=== PATIENT | female | born 1935 | race Caucasian/White ===

== ENCOUNTER 2022-01-04 15:50 | Inpatient (IN) | payer MEDICARE ==
[~2022-01-04] VITALS: Ht 149.9 cm; Wt 57.6 kg
--- NOTE | 2022-01-04 20:18 | NUR ---
PT ARRIVED FROM E.D. AT THIS TIME, SHE IS ALERT AND ORIENTED, DAUGHTER IS WITH PATIENT IN ROOM FOR ADMISSION.
--- NOTE | 2022-01-04 20:20 | NUR ---
PT ARRIVES TO THE FLOOR VIA STRETCHER. PT ABLE TO STAND AND WALK TO BATHROOM WITH 1PA AND BACK TO BED. TOLERATED WELL. ADMISSION PROCESS COMPLETE WITH PT'S DAUGHTER AT BEDSIDE.MD ORDERS AND POC FOR THIS SHIFT DISCUSSED. FURTHER QUESTIONS DENIED. BED ALARM ACTIVATED. CALL LIGHT INSTRUCTIONS PROVIDED AND CALL LIGHT LEFT IN PT REACH. PT DENIES FURTHER NEEDS AT THIS TIME.
--- NOTE | 2022-01-04 22:04 | NUR ---
PT UP TO BEDSIDE COMMODE AT THIS TIME. SHE REPORTS NO PAIN OR NAUSEA AT THIS TIME. HS MED PASS COMPLETE. PENDING ASSESSMENT FOR AFTER SHE IS OFF THE COMMODE, SHE IS DRINKING THE LAST OF HER BOWEL PREP AT THIS TIME.
--- NOTE | 2022-01-04 22:49 | NUR ---
PT UP TO BEDSIDE COMMODE, NOTED TO HAVE PROLAPSE AT THIS TIME, PT CONTINUES TO HAVE LOOSE STOOLS, AND INSISTS ON SITTING LONGER ON COMMODE, PT ALOTTED 15MIN MORE THEN TO BED TO ATTEMPT TO REDUCE PROLAPSE IF ABLE.
--- NOTE | 2022-01-04 23:08 | NUR ---
INTO ASSIST PT BACK TO BED, SHE SAID SHE HAS NAUSEA, AND SHE FELT LIGHT HEADED, THIS RN AND DONN PARHAM RN ASSISTED PT BACK TO BED, WHILE SALVAGE INSPECTOR JAZMIN WENT FOR ZOFRAN. ONCE PT BACK TO BED, ASSESSED PROLAPSE, PROLAPSE REDUCED ONCE PT IN BED BY ITS SELF, PT REPORTS NO PAIN, PT ALSO REPORTS NAUSEA IMPROVED ONCE IN BED, ZOFRAN ADMINISTERED, PT ON BED JARAMILLO SHE CONTINUES TO HAVE LOOSE BM AT THIS TIME.
--- NOTE | 2022-01-04 23:20 | NUR ---
IN TO ASSIST RN WITH PT ON BEDPAN
--- NOTE | 2022-01-04 23:25 | NUR ---
PT REPORTS NO NAUSEA OR PAIN CONTINUE TO HAVE LOOSE STOOLS ON THE BEDPAN. PT REPORTS NO LIGHT HEADEDNESS, PROLAPSE REMAINS REDUCED AT THIS TIME.
--- NOTE | 2022-01-05 00:13 | NUR ---
PT ASSESSED AND CHANGED OFF OF BEDPAN FOR SKIN CHECK AND CLEAN UP. PT REPORTS "I AM SO MUCH MORE COMFORTABLE ON THE BED JARAMILLO" JARAMILLO PLACED BACK UNDER PT AND SHE CONTINUES TO HAVE LIQUID STOOL CONTINUALLY. TOWEL FOLED AND CHECKS PLACED OVER BED JARAMILLO TO PROTECT SKIN AND PROVIDE PADDING. PT COOPERATIVE WITH ALL CARE.
--- NOTE | 2022-01-05 00:28 | NUR ---
RECTAL PROLAPSE REMAINS REDUCED, CALL LIGHT IN REACH, REPORTS NO PAIN, OR NAUSEA.
--- NOTE | 2022-01-05 01:50 | NUR ---
ROUNDING ON PT, CHANGED OUT BED JARAMILLO AND CLEANED PT UP, SHE HAS BEEN ABLE TO SLEEP IN BETWEEN CHANGING. SHE IS ORIENTED AND ALERT TO STAFF IN ROOM. ASSESSMENT PT PROLAPSE REMAINS REDUCED, STOOL IS LIQUID LIGHT ARIAS IN COLOR. TOWEL AND CHUCKS PLACED BETWEEM PT AND BED JARAMILLO TO PROVID SKIN PROTECTION, MONITORING SKIN CLOSELY. PT REPORTS NO PAIN OR NAUSEA AT THIS TIME.
--- NOTE | 2022-01-05 03:30 | NUR ---
IN TO ASSIST RN WITH PTs BEDPAN NEEDS
--- NOTE | 2022-01-05 05:16 | NUR ---
PT COMPLETED BOWEL PREP EARLY IN SHIFT, SHE HAS HAD CONTINUOUS LIQUID BM OVER SHIFT. SHE HAS BEEN USING BED JARAMILLO SINCE SHE HAD PROLAPSE WHEN UP TO COMMODE, IT REDUCED WHEN BACK TO BED BY ITS SELF, SHE HAS BEEN CHANGED AND CLEANED EVERY HOUR. SHE REPORTS NO PAIN OR NAUSEA OVER SHIFT. SHE REMAINS ON CLEAR LIQUID DIET. SCDS ON. CALL LIGHT IN REACH, IVF INFUSING.
--- NOTE | 2022-01-05 07:29 | NUR ---
CALLED FOR UP DATE ON PT GAVE UPDATE ON EVENTS AT 714, CALLED BACK AT THIS TIME TO NOTIFY HIM OF PT LABS, INCLUDING H/H, AND K+ 3.3 GAVE TELEPHONE ORDER FOR 20MEQ IV ONCE TO BE INFUSED OVER TWO HOURS. ORDER PLACED. SAID HE WILL PLAN TO TAKE PT TO COLONOSCOPY TO FOLLOW THIS AM.
[2022-01-05] MEDS ORDERED: DORZOLAMIDE HCL10 ML OU (08:52)
[2022-01-05] MEDS ORDERED: IPRATROPIUM BRO15 ML NAS (08:53)
[2022-01-05] MEDS ORDERED: LATANOPROST2.5 ML OU (08:54)
[2022-01-05] MEDS ORDERED: METOPROLOL TART25 MG PO (08:55)
[2022-01-05] MEDS ORDERED: BRIMONIDINE TART5 ML OU (08:56)
[2022-01-05] MEDS ORDERED: TIMOLOL MALEATE5 M2 OU (08:57)
[2022-01-05] MEDS ORDERED: CITRACAL + D E1 EACH PO (10:45)
[2022-01-05] MEDS ORDERED: ARTIFICIAL TEAR15 ML OPTH (10:45)
[2022-01-05] MEDS ORDERED: CENTRUM SILVER1 EAC3 PO (10:46)
[2022-01-05] MEDS ORDERED: VITAMIN C500 M1 PO (10:47)
--- NOTE | 2022-01-05 10:50 | NUR ---
MED REC COMPLETE
--- NOTE | 2022-01-05 11:35 | NUR ---
01/05/22 1135 Rosi Rao 1131: PT ARRIVES TO PACU FOR RECOVERY VIA STRETCHER. VSS, RESP EVEN AND UNLABORED. O2 SATS >98% ON 10L VIA NON REABREATHER. NON AROUSABLE ON ARRIVAL. PASSING GAS INTERMITTENTLY.
--- NOTE | 2022-01-05 12:34 | NUR ---
Patient back to the medical floor from colonoscopy study. Patient awake, a&ox4. Patient denies pain and or nausea. IV fluids restarted per provider order. Vital signs are stable. No rectal bleeding noted at this time. Patient denies needs. Encouraged patient to call staff if she needs anything.
--- NOTE | 2022-01-05 14:51 | NUR ---
BLOOD STARTED. VITALS TAKEN AND DOCUMMENTED. PT EDUCATED ON S/SX OF TRANSFUSION REACTION. BLOOD STARTED AT 30ML/HR FOR 15 MINUTES. THIS NURSE AT BEDSIDE MONITORING PT.
--- NOTE | 2022-01-05 14:55 | NUR ---
PT WITHOUT SIGNS OR SYMPTOMS OF REACTION. RATE INCREASED TO 150ML/HR. VITALS TAKEN AND STABLE.
--- NOTE | 2022-01-05 16:38 | NUR ---
Patient doing well, no distress. Blood continuing to infuse, IV patent. Patient denies pain at this time. Daughter at bedside visiting. No current needs. Personal supplies and call light within reach.
--- NOTE | 2022-01-05 17:49 | NUR ---
Dr. Quiroz updated regarding most recent H&H of [phone]. No new orders obtained at this time.
--- NOTE | 2022-01-05 18:53 | NUR ---
No rectal bleeding this shift. Patient denies pain at this time. No current needs.
--- NOTE | 2022-01-05 19:49 | NUR ---
REPORT RECEIVED FROM DAY SHIFT RN. PT LYING IN BED ALERT AND ORIENTED. DENIES NEEDS. WHITE BOARD UPDATED. CALL LIGHT IN REACH.
--- NOTE | 2022-01-05 21:35 | NUR ---
EVENING ASSESSMENT COMPLETE. SCHEDULED MEDS ADMINISTERED PER EMAR. PT DENIES PAIN OR NAUSEA. SCHEDULED TYLENOL HELD PER PT REQUEST. IVF INFUSING WNL. BOWEL TONES ACTIVE. ABD SOFT AND NON DISTENDED. SCD'S IN PLACE. PT DENIES QUESTIONS OR CONCERNS. CALL LIGHT IN REACH.
--- NOTE | 2022-01-05 22:32 | NUR ---
PT UP TO BR WITH SBA TO VOID AND HAVE SMALL AMOUNT LIQUID BM. THIS RN ASSISTED WITH [facility]. RECTAL PROLAPSE NOTED. ATTEMPT TO REDUCE WITH GENTLE PRESSURE UNSUCCESSFUL. PT REPORTS IF SHE LIES BACK DOWN IN BED IT WILL REDUCE ITSELF. PT BACK TO BED. RECTUM DID SELF REDUCE. DR. LASSITER ON FLOOR AND AWARE. PT DENIES FURTHER NEEDS. CALL LIGHT IN REACH.
--- NOTE | 2022-01-06 00:35 | NUR ---
PT RESTING IN BED WITH EYES CLOSED. RESPIRATIONS EVEN. CALL LIGHT IN REACH.
--- NOTE | 2022-01-06 02:51 | NUR ---
CALL LIGHT ANSWERED. PT UP TO BSC WITH MINIMAL SBA TO VOID. STAFF ASSIST WITH [facility]. RECTAL PROLAPSE NOTED. RECTUM SELF REDUCED AFTER PT IN LYING POSITION. SCANT AMOUNT OF BLEEDING NOTED WITH [facility]. PT DENIES PAIN OR NAUSEA. NEW BAG IVF INFUSING WNL. NO FURTHER NEEDS. CALL LIGHT IN REACH.
--- NOTE | 2022-01-06 04:50 | NUR ---
IV PUMP ALARMING. ISSUE RESOLVED. PT RESTING WITH EYES CLOSED. RESPIRATIONS EVEN. CALL LIGHT IN REACH.
--- NOTE | 2022-01-06 06:40 | NUR ---
VS AND I&O COMPLETE. PT DENIES PAIN OR NAUSEA. SCHEDULED TYLENOL HELD PER REQUEST. PT DENIES NEEDS. CALL LIGHT IN REACH.
--- NOTE | 2022-01-06 07:24 | NUR ---
Patient resting in bed, eyes closed, respirations even and non labored. IV infusing per provider order. No needs at this time. Personal supplies and call light within reach.
--- NOTE | 2022-01-06 09:19 | NUR ---
Patient up to bedside commode, small soft stool noted, no blood. Rectal prolapse noted, this RN attempted to gently reduce, unsuccessful at this time. Patient assisted back to bed, rectum self reduced at this time. Patient denies pain. No current needs. Personal supplies and call light within reach.
--- NOTE | 2022-01-06 10:17 | NUR ---
PATIENT TO CT WITH ERYN CASEY, VIA WHEELCHAIR.
--- NOTE | 2022-01-06 13:17 | NUR ---
Dr. Quiroz in to see patient to discuss plan of care. Patient reports she is understanding of plan of care at this time.
--- NOTE | 2022-01-06 14:18 | NUR ---
Verbal report provded to RAUL Rubin at this time as she will take over care of this patient for the remainder of this shift.
--- NOTE | 2022-01-06 16:38 | NUR ---
Rounded on the patient, patient watching TV, assess if she need anything and she asked to wait to use the bathroom for about another 30 minutes
--- NOTE | 2022-01-06 19:45 | NUR ---
REPORT RECEIVED FROM DAY SHIFT RN. PT LYING IN BED RESTING WITH EYES CLOSED. RESPIRATIONS EVEN. CALL LIGHT IN REACH.
--- NOTE | 2022-01-06 20:43 | NUR ---
V/S AND I&O'S DONE AND CHARTED BY RAUL SUAZO. PATIENT WAS WIPED FROM INCONTINENT URINE AND BOWEL MOVEMENT. PATIENT REPOSITIONED. GOWN CHANGED. NO OTHER CARE NEEDS AT THIS TIME.
--- NOTE | 2022-01-06 22:15 | NUR ---
EVENING ASSESSMENT COMPLETE. SCHEDULED MEDS ADMINISTERED PER EMAR. PT DENIES PAIN OR NAUSEA. SCHEDULED TYLENOL HELD PER PT REQUEST. BOWEL TONES ACTIVE. ABD SOFT AND NON DISTENDED. PT UPDATED ON PLAN FOR SURGERY FRIDAY. CLEAR LIQUIDS AT BEDSIDE. SCD'S IN PLACE. PT DENIES QUESTIONS OR CONCERNS. CALL LIGHT IN REACH.
--- NOTE | 2022-01-06 23:52 | NUR ---
PATIENT IS OFF OF THE BED JARAMILLO NOW. HAD LOOSE BOWEL MOVEMENT AND URINE. RN MARIA DEL ROSARIO WAS WITH PATIENT. GARBAGE PICKED UP.
--- NOTE | 2022-01-07 01:13 | NUR ---
IV IN LEFT FOREARM LEAKING AND REDNESS NOTED. IV DC'D WNL. TIP INTACT. NEW IV STARTED WITH 4 ATTEMPTS. JERRI FAIR. PT ANXIOUS WITH IV STARTS. SUPPORT PROVIDED. IVF INFUSING WNL. PT DENIES FURTHER NEEDS.
--- NOTE | 2022-01-07 02:48 | NUR ---
PT RESTING IN BED WITH EYES CLOSED. RESPIRATIONS EVEN. CALL LIGHT IN REACH.
--- NOTE | 2022-01-07 04:32 | NUR ---
CALL LIGHT ANSWERED. ASSISTED PT TO USE BED JARAMILLO TO VOID AND HAVE LIQUID BROWN BM. STAFF ASSIST WITH [facility]. RECTAL PROLAPSE NOT NOTED AT THIS TIME. REPOSITIONED TO RIGHT SIDE FOR COMFORT. NEW BAG IVF INFUSING WNL. NO FURTHER NEEDS. CALL LIGHT IN REACH.
--- NOTE | 2022-01-07 06:10 | NUR ---
VS AND I&O COMPLETE. PT DENIES PAIN OR NAUSEA. NO FURTHER NEEDS. CALL LIGHT IN REACH.
--- NOTE | 2022-01-07 07:52 | NUR ---
Patient in bed resting, eyes closed, respirations even and non labored. Patient has no notable distress. IV site patent, IV fluids infusing per provider order. No needs, personal supplies and call light within reach.
--- NOTE | 2022-01-07 10:47 | NUR ---
I was able to meet with Annika and her children this morning, Annika is alert and oriented to person, place and time, and answers questions appropriately. Pt does request that she can use bedside commode as compared to bedpan which some staff members have been having her use. There are no contraindications noted for using the bedside commode at this time, request passed on to patient's RN who verbalizes agreement with the plan, and will pass this informaiton on to other staff members. Pt reports that she is happy with her care and has no other concerns at this time. Daughter does note that the patient has a "little bit of redness on her right elbow," this is also noted byt his RN and passed on to the patients primary care nurse.
--- NOTE | 2022-01-07 10:49 | NUR ---
PATIENT SITTING UP IN BED, FAMILY IN ROOM. VITALS AND I&O'S CHARTED. CALL LIGHT IN REACH. NO FURTHER NEEDS AT THIS TIME.
--- NOTE | 2022-01-07 11:45 | NUR ---
Patient up to bedside commode, scant liquid stool noted, no blood. Rectal prolapse noted, this RN attempted to gently reduce, unsuccessful at this time. Patient assisted back to bed, rectum self reduced at this time. Patient denies pain. No current needs. Personal supplies and call light within reach.
--- NOTE | 2022-01-07 12:57 | NUR ---
Patient sitting up in bed drinking fluids, no distress. IV site patent, fluids infusing per provider order. Patient denies pain. No needs at this time, personal supplies and call light within patient reach.
--- NOTE | 2022-01-07 13:45 | NUR ---
New IV started. IV kcl started at this time. Patient denies needs.
--- NOTE | 2022-01-07 14:50 | NUR ---
PATIENT IN BED AT THIS TIME. VITALS AND I&O'S CHARTED. CALL LIGHT IN REACH. NO FURTHER NEEDS AT THIS TIME.
--- NOTE | 2022-01-07 15:02 | NUR ---
MED REC COMPLETE
--- NOTE | 2022-01-07 15:35 | NUR ---
IV site infiltrated at this time. New IV to be placed. KCL iv infusion currently delayed due to this. New IV being attempted at this time.
--- NOTE | 2022-01-07 19:12 | NUR ---
REPORT RECIEVED FROM DAY SHIFT RN. PT LYING IN BED ALERT AND ORIENTED. DENIES NEEDS. WHITE BOARD UPDATED. CALL LIGHT IN REACH.
--- NOTE | 2022-01-07 21:08 | NUR ---
EVENING ASSESSMENT COMPLETE. SCHEDULED MEDS ADMINISTERED PER EMAR. PT REPORTS PAIN/CRAMP IN LEFT FOOT. SCHEDULED TYLENOL ADMIN. IV POTASSIUM INFUSING WNL. PT UP TO BSC TO VOID AND HAVE JELLY LIKE RED BM. HEME TEST NEGATIVE. PT HAS BEEN DRINKING RED COLORED CLEAR LIQUID ENSURE. STAFF ASSIST WITH [facility]. RECTAL PROLAPSE SELF RESOLVED AFTER LYING IN BED. PT ANXIOUS ABOUT UPCOMING SURGERY. QUESTIONS ANSWERED. COMFORT PROVIDED. SCD'S IN PLACE. NO FURTHER NEEDS AT THIS TIME. CALL LIGHT IN REACH.
--- NOTE | 2022-01-07 23:00 | NUR ---
1 PA PATIENT WAS UP TO BEDSIDE COMMODE. VOIDED 300ML WITH SOME RED CLOTS. PATIENT IS BACK IN BED. NO OTHER NEEDS AT THIS TIME. CALL LIGHT AND SIDE TABLE WITHIN REACH.
--- NOTE | 2022-01-07 23:17 | NUR ---
SCHEDULED ABX ADMIN PER EMAR. ASSISTED PT TO REPOSITION IN BED. NO FURTHER NEEDS. CALL LIGHT IN REACH.
--- NOTE | 2022-01-08 00:50 | NUR ---
PT RESTING IN BED WITH EYES CLOSED. RESPIRATIONS EVEN. CALL LIGHT IN REACH.
--- NOTE | 2022-01-08 02:25 | NUR ---
IV POTASSIUM COMPLETE. BMP SENT TO LAB PER DR. LASSITER ORDER. PT UP TO BSC TO VOID AND PASS GAS. STAFF ASSIST WITH [facility]. SOME RED NOTED NEAR RECTUM. UNCLEAR IF BLOOD OR RED DYE FROM CL LIQ ENSURE. BACK TO BED, JERRI WELL. PRE-OP EKG COMPLETE. IVF AT TKO AT THIS TIME. PT REMAINS NPO STATUS.
--- NOTE | 2022-01-08 05:05 | NUR ---
PT UP TO BSC TO VOID AND HAVE SMALL LIQUID BM THAT WAS RED IN COLOR. RECTAL PROLAPSE NOTED. CHLORHEXIDINE WIPE DOWN FOR SURGERY COMPLETE. LINENS CHANGED. PT BACK TO BED. RECTAL PROLAPSE SELF REDUCED. DENTURES REMOVED AND ON BEDSIDE TABLE. NO FURTHER NEEDS AT THIS TIME. CALL LIGHT IN REACH.
--- NOTE | 2022-01-08 06:44 | NUR ---
SBA TO BSC TO VOID AND HAVE SMALL LIQUID BM. SMALL AMOUNT OF BLOOD FROM RECTUM NOTED WITH [facility] AND IN BRIEF. RECTAL PROLAPSE SELF REDUCED AFTER LYING IN BED. NO FURTHER NEEDS. CALL LIGHT IN REACH.
--- NOTE | 2022-01-08 06:58 | NUR ---
PT OFF FLOOR WITH OR NURSE.
--- NOTE | 2022-01-08 07:42 | NUR ---
REPORT RECEIVED FROM NIGHT RN - PT IN OR.
--- NOTE | 2022-01-08 08:10 | NUR ---
Attempted to see pt, she has gone to surgery. Will see tomorrow.
--- NOTE | 2022-01-08 10:06 | NUR ---
MET WITH PT IN DS, SHE AWAITED SURGERY. 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 SEEMS VERY SELF-SUFFICIENT. GAVE ENCOURAGEMENT, PT ASKED FOR PRAYER. WILL FOLLOW NEEDED
--- NOTE | 2022-01-08 11:54 | NUR ---
01/08/22 1154 Keli Lombardi 1143-PATIENT ARRIVED TO PACU ON 8L MASK NONAROUSABLE ORAL AIRWAY IN PLACE. RR EVEN. SR WITH ST DEPRESSION AND BBB. IVF INFUSING. MIDLINE INCISION CDI ROMAN DRAIN TO LEFT SIDE SEROUSANGUINOUS DRAINAGE. 1152-PATIENT AROUSING TO VERBAL STIMULI MOANING. ORAL AIRWAY REMOVED. PLACED ON 6L MASK RR EVEN 100% PATIENT NODS HEAD NO TO PAIN. REMAINS VERY DROWSY EYES CLOSED.
--- NOTE | 2022-01-08 12:46 | NUR ---
REPORT RECEIVED FROM MANAGER CAR. PT AWAKE AND RESPONSIVE IN BED. DENIES PAIN AT THIS TIME. VS CONSISTANT FROM PACU- BP SOFT BUT IMPROVING. INCISION DRESSINGS C/D/I. RR EVEN AND SPO2 WNL. CALL LIGHT IN REACH, PT DEMONSTRATES ABILITY TO PRESS IT.
--- NOTE | 2022-01-08 13:53 | NUR ---
PT HAS RETURNED FROM PACU, RAUL QUINTANILLA REQUESTED I NOT DISTURB PT AT THIS TIME. WILL FOLLOW
--- NOTE | 2022-01-08 14:20 | NUR ---
RN IN ROOM TO ASSESS PT. PT C/O MILD NAUSEA, REQUESTS PRN FOR THIS. 4MG ZOFRAN GIVEN IV. POST OP VS IMPROVING. BP CONTINUING TO RISE. SCHEDULED PAIN MEDS ADMINISTERED. RR SOME-WHAT SHALLOW - ENCOURAGED TO DEEP BREATH. ROMAN DRAIN DRESSING SATURATED WITH SEROUS FLUID, REPLACED AND MIDLINE INCISION DRESSING REINFORCED WITH OPSITE. PT RESTING IN BED WITHOUT DISTRESSS, EASILY FALLS ASLEEP WHILE RN IN ROOM.
--- NOTE | 2022-01-08 14:44 | NUR ---
PT REPORTS INCREASE IN PAIN, PRN MORPHINE ADMINISTERED AT HALF DOSE. DAUGHTER AT BEDSIDE. PT STATES NAUSEA RESOLVED. INSTRUCTED ON IS USE.
--- NOTE | 2022-01-08 16:04 | NUR ---
PT REQUESTS ADITIONAL DOSE OF PRN PAIN MEDICATION. RESTING IN BED WITH EYES OPEN, RR EVEN AND UNLABORED. VS STABLE. ENCOURAGED ICE APPLICATION TO ABDOMEN. CALL LIGHT AND TABLE IN REACH.
--- NOTE | 2022-01-08 18:08 | NUR ---
RN IN ROOM TO ASSESS PT. VS IMPROVING. PT RATES PAIN 5/10, INCREASED WITH DRESSING CHANGE OF ROMAN DRAIN. PRN MEDS ADMINISTERED. PT DENIES NAUSEA. ROMAN DRAIN DRESSING SATURATED WITH SEROSANGUINOUS DRAINAGE THAT SATURATED GOWN. REAPPLIED 4 LAYERS OF 4/4 DRESSING AND SILK TAPE. PT USES IS APPROPRIATLEY. CALL LIGHT IN REACH, TABLE PLACED OVER PT WITH EVERYTHING IN REACH.
--- NOTE | 2022-01-08 20:12 | NUR ---
IV ABX INFUSING WNL. PRN FOR 5/10 ABD PAIN ADMIN PER EMAR. PT DENIES NAUSEA. CLEAR LIQUIDS AT THE BEDSIDE. ASSISTED TO REPOSITION. NO FURTHER NEEDS.
--- NOTE | 2022-01-08 22:15 | NUR ---
EVENING ASSESSMENT COMPLETE. SCHEDULED MEDS ADMINISTERED PER EMAR. PT REPORTS ABD PAIN 03/22. PRN FOR PAIN ADMIN WELL SCHEDULED TYLENOL. PT DENIES NAUSEA. MIDLINE ABD DRESSING CDI. BOWEL TONES HYPOACTIVE. PT DENIES FLATUS. ROMAN IN LLQ STRIPPED WITH SCANT AMOUNT SEROSANG DRAINAGE. CPOX AND SCD'S IN PLACE. VSS. LOW URINE OUTPUT NOTED. ASSISTED PT TO REPOSITION. NO FURTHER NEEDS AT THIS TIME. CALL LIGHT IN REACH.
--- NOTE | 2022-01-08 22:45 | NUR ---
DR. LASSITER NOTIFIED OF LOW URINE OUTPUT. NEW TELEPHONE ORDERS RECEIVED VERIFIED WITH READ BACK METHOD.
--- NOTE | 2022-01-08 23:05 | NUR ---
pt RESTING IN BED AWAKE. IVF BOLUS INFUSING WNL. pt STATES PAIN IS "BETTER". ASSISTED TO UNTANGLE CONTINUOUS PULSE OX CORD. NO ADDITIONAL REQUESTS. CALL LIGHT IN REACH.
--- NOTE | 2022-01-09 00:10 | NUR ---
CALL LIGHT ANSWERED. CPOX ALARMING DUE TO NOT GETTING A GOOD READ. EDUCATION PROVIDED TO PT. IV BOLUS COMPLETE. PT REPORTS SHE IS RESTING COMFORTABLY. NO NEEDS AT THIS TIME.
--- NOTE | 2022-01-09 02:19 | NUR ---
VS AND I&O COMPLETE. IV ABX INFUSING WNL. PT REPORTS ABD PAIN. PRN FOR PAIN ADMIN. DENIES NAUSEA. URINE OUTPUT LESS THAN PARAMATERS. WILL INFUSE 500 ML BOLUS PER MD ORDER.
--- NOTE | 2022-01-09 03:57 | NUR ---
PT RESTING IN BED WITH EYES CLOSED. RESPIRATIONS EVEN. CALL LIGHT IN REACH.
--- NOTE | 2022-01-09 07:07 | NUR ---
VS AND I&O COMPLETE. 350 ML YELLOW URINE IN ADAMS CATH. 8 ML SEROSANG DRAINAGE FROM ROMAN. ROMAN STRIPPED. DRESSING CHANGED AROUND ROMAN DUE TO INSERTION SITE LEAKING. PRN FOR ABD PAIN ADMIN PER EMAR. MIDLINE ABD DRESSING CDI. BOWEL TONES HYPOACTIVE. PT DENIES FLATUS. DENIES NAUSEA. CLEAR LIQUID ENSURE PROVIDED. PT DENIES FURTHER NEEDS. CALL LIGHT IN REACH.
--- NOTE | 2022-01-09 07:46 | NUR ---
REPORT RECEIVED FROM NIGHT RN - PT RESTING IN BED WITH EYES CLOSED. CALL LIGHT IN REACH. CARE PLAN REVIEWED.
--- NOTE | 2022-01-09 09:15 | NUR ---
RN IN ROOM TO ASSESS PT - PT RESTING IN BED AWAKE. PT REQUESTS PRN PAIN MEDICATION. RATES PAIN A 7/10 IN ABDOMEN. SCHEDULED MEDS AND PRN IV PAIN MEDICATION ADMINISTERED. PT REQUESTS ADVANCING DIET TODAY, DENIES PASSING GAS SINCE SURGERY BUT DENIES NAUSEA, BOWEL TONES ACTIVE X 4. PLAN OF CARE REVIEWED WITH PT, STATES UNDERSTANDING AND AGREES TO ATTEMPT TO MOVE TO PO PAIN MANAGMENT AND AMBULATE IN ROOM. IV SITE TOLERATING FLUIDS AND ABX WITHOUT DIFFICULTY OR PAIN. URINE OUTPUT INCREASED FROM PREVIOUS SHIFT, CONCERN ABOUT EDEMA TO BE ADDRESSED WITH MD. BP ELEVATED FROM YESTERDAY BUT WNL. CALL LIGHT IN REACH AND TABLE AT BEDSIDE.
--- NOTE | 2022-01-09 11:55 | NUR ---
PT USES CALL LIGHT TO REQUEST PAIN MEDICATION. IV PRN MEDS ADMINSTERED. PT AGREES TO PLAN TO START PO PAIN MEDS AFTER LUNCH.
--- NOTE | 2022-01-09 11:59 | NUR ---
PT REQUESTS IV PAIN MEDS FOR 7/10 ABDOMINAL PAIN. ADMINISTERED. PT AGREES TO PLAN TO EAT FULL LIQUID DIET AND START PO PAIN MEDS AFTER LUNCH. ROMAN DRESSING CHANGED IT WAS SATURATED. AWARE OF ROMAN OUTPUT AND DRAINAGE - NO NEW ORDERS REVIEVED. IV SALINE LOCKED PER ORDERS. FRESH GOWN AND BED LINENS APPLIED. PT CALL LIGHT AND BEDSIDE TABLE IN REACH.
--- NOTE | 2022-01-09 13:50 | NUR ---
Spoke with pt and her children. Pt sitting up in bed visiting. Pt lives with son and does not use any DME. She denies needs and plans on dc to home with son.
--- NOTE | 2022-01-09 14:24 | NUR ---
RN IN ROOM TO ADMINISTER PAIN MEDICATION AND SCHEDULED TYLENOL. PT RATES PAIN A 7/10. TRANSISTION TO PO PAIN MEDS INITIATED. PT AMBULATED UP TO BEDSIDE COMMODE- MODERATE BROWN LIQUID STOOL PRODUCED - PT QUITE ANXIOUS ABOUT THIS PROCESS. ENCOURAGED THAT IT WAS EXPECTED. PT THEN AMBULATED IN HALLWAY WITH NO WEAKNESS. URINE OUTPUT QS IN ADAMS, VS STABLE, APPETITE INCREASED. FAMILY VISITING WENT HOME.
--- NOTE | 2022-01-09 14:25 | NUR ---
PT ALERT, ORIENTED, SITTING UP IN BED VISITING WITH DAUGHTER ARIE AND SON NATASHA. PT HAS BIG SMILE, PLEASED I STOPPED BY. GAVE ENCOURAGEMENT, FEELS SHE IS WELL INFORMED, FAMILY FEELS THAT WAY WELL. PT REQUESTED PRAYER, G.POST GIVEN. WILL FOLLOW NEEDED
--- NOTE | 2022-01-09 18:48 | NUR ---
PT RESTING IN BED WATCHING TV. STATES PAIN IS MANAGABLE RIGHT NOW AND WOULD LIKE TO WAIT TO TAKE NEXT DOSE CLOSER TO BEDTIME. DENIES NEEDS, CALL LIGHT IN REACH.
--- NOTE | 2022-01-09 19:55 | NUR ---
REPORT RECEIVED FROM RAUL QUINTANILLA. pt RESTING IN BED. RATES PAIN 04/21 STATES "I'M OKAY NOW". DENIES PRN MEDICATIONS OFFERED, REQUESTS TO TAKE PAIN MEDICATIONS WITH EVENING MEDICATIONS. IV SL. CALL LIGHT IN REACH.
--- NOTE | 2022-01-09 21:30 | NUR ---
pt AWAKE RESTING IN BED. VSS. ASSESSMENT COMPLETE. MIDLINE DRESSING CDI. ROMAN DRAIN WITH SMALL AMT SS FLUID. SMALL AMT SS DRAINAGE SHADOWING ON DRESSING. BOWEL TONES ACTIVE. ABD SOFT, pt STATES NON-TENDER WITH PALAPTION. RATES PAIN 7/10. PRN AND SCHEDULED PAIN MEDICATION ADMINISTERED AT THIS TIME. IV SITE FLUSHED WNL, SL. ADAMS CARE COMPLETE. ATTENDS CHANGED, SMALL AMT LIQUID STOOL NOTED. CALL LIGHT IN REACH. LIGHTS OFF IN ROOM. WARM BLANKET PROVIDED.
--- NOTE | 2022-01-09 22:08 | OR ---
[facility] [address], [place] [address] Signed DATE OF OPERATION: 01/05/2022 SURGEON: Joselo Lassiter MD PREOPERATIVE DIAGNOSES: 1. New onset rectal prolapse with rectal bleeding. 2. Anemia greater than level expected based on bleeding (hematocrit 27). POSTOPERATIVE DIAGNOSES: 1. Moderate excoriation of rectal mucosa related to recent rectal prolapse. 2. Sigmoid diverticulosis. 3. Sessile right mid colonic polyp (excised). 4. Cecal carcinoma (biopsied). PROCEDURES: Total colonoscopy to cecum with biopsy of cecum and hot snare polypectomy of right mid colonic polyp with application of tattoo. ANESTHESIA: Propofol infusion, Joselo Shrestha CRNA. INDICATIONS: This 86-year-old white woman presented to the emergency room yesterday with significant rectal prolapse. Her daughter who assists her is a former nurse and recognize rectal prolapse. Evaluation by Dr. Ibanez in the emergency room showed prolapse of approximately 4 to 6 inches, which was not able to be reduced manually. I was consulted. The patient had associated significant rectal bleeding quite alarming to the patient and her daughter. By the time I saw her within an hour of consultation, the rectum had reduced itself without problem. Notably, the patient has never had a colonoscopy. She was found to be somewhat anemic and was admitted to the hospital and underwent bowel preparation and although did have prolapse of the rectum while on the commode, did not have any while lying supine and using the bed mtz. Her hematocrit this morning was found to be 27. It is quite unlikely that new onset rectal prolapse even with rectal bleeding would result in that level of anemia. Since she has never had colonoscopy in the past and the possibility of a concurrent neoplastic process is considered, I have recommended colonoscopy. I have discussed the risks of bleeding, infection, and perforation with the patient and her daughter. They understand and wished to proceed as well. Electronically Signed By: JOSELO LASSITER MD 01/09/22 2208 PATIENT NAME: QUINTON GILLIS OPERATIVE REPORT DATE OF : 35 REPORT #: [id number] PHYSICIAN: JOSELO LASSITER MD PCP: MARIA TERESA GARCIA MD REPORT IS CONFIDENTIAL AND NOT TO BE RELEASED WITHOUT AUTHORIZATION [facility] [address], [place] [address] Signed FINDINGS: The prep was excellent. Complete colonoscopy was undertaken to the cecum. Indeed, there was a cecal cancer. There was a sessile polyp of the right mid colon which was excised as well. The remaining colon was notable only for diverticulosis of the left colon and sigmoid and excoriation of the rectum, which had no sign of ongoing bleeding. PROCEDURE IN DETAIL: The patient was brought into the endoscopy suite, placed in lateral decubitus position, given intravenous sedation with propofol infusional technique by the lathe winder. A digital rectal examination confirmed a very lax sphincter muscle. There was no prolapse currently. An Olympus video colonoscope was passed in the rectum and manipulated where it was noted to have some ischemic mucosa not infarction by any means, but excoriation in the rectum. No doubt related to her recent rectal prolapse. The scope was manipulated through the sigmoid where diverticulosis was noted. Scope was ultimately passed to the cecum where obvious cecal cancer was noted. Multiple biopsies were taken of this lesion. The scope was carefully withdrawn and about the mid right colon was a sessile polyp, which was excised with hot snare technique without problem. Endomark tattoo dye was injected in the submucosal plane for future reference, anticipating resection of the cecum. The scope was further withdrawn and there were no other findings of note other than those mentioned. The ischemic segment of the rectum was not biopsied. It was not actively bleeding and was not problematic at this time. The scope was removed. The patient was taken to the recovery room in good condition. CONCLUSION DIAGNOSIS: As suspected, a concurrent lesion accounting for her anemia-cecal carcinoma. We will now obtain a CT scan of the abdomen. Check a CEA level and possibly consider transfusion. In general, I would avoid a concurrent right colectomy as well as an Altemeier procedure (perineal proctectomy) in someone of this advanced age. Priority of treatment will be determined after discussion with family. Joselo Lassiter MD /JOSE ENRIQUEL /[id number] Electronically Signed By: JOSELO LASSITER MD 01/09/22 2208 PATIENT NAME: QUINTON GILLIS OPERATIVE REPORT DATE OF : 35 REPORT #: [id number] PHYSICIAN: JOSELO LASSITER MD PCP: MARIA TERESA GARCIA MD REPORT IS CONFIDENTIAL AND NOT TO BE RELEASED WITHOUT AUTHORIZATION [address] [address] Signed cc: Dr. Maria Teresa Garcia Edward Ibanez Copies: MARY IBANEZG ~ Electronically Signed By: JOESLO LASSITER MD 01/09/22 2208 PATIENT NAME: QUINTON GILLIS OPERATIVE REPORT DATE OF : 35 REPORT #: [id number] PHYSICIAN: JOSELO LASSITER MD PCP: MARIA TERESA GARCIA MD REPORT IS CONFIDENTIAL AND NOT TO BE RELEASED WITHOUT AUTHORIZATION
--- NOTE | 2022-01-09 23:30 | NUR ---
CHECKED ON pt, RESTING IN BED WITH EYES CLOSED. BREATHING EQUAL AND UNLABORED. NO DISTRESS NOTED. ADAMS DRAINING CLEAR YELLOW URINE.
--- NOTE | 2022-01-10 02:15 | NUR ---
CHECKED ON pt. RESTING IN BED WITH EYES CLOSED. BREATHING EQUAL AND UNLABORED. NO DISTRESS NOTED. LIGHTS OFF IN ROOM.
--- NOTE | 2022-01-10 03:14 | NUR ---
CALL LIGHT ANSWERED. pt C/O 05/22 ABDOMINAL PAIN "CRAMPING". SMALL AMT SOFT AND LIQUID STOOL NOTED IN ATTENDS, BROWN IN COLOR. pt REQUESTING TO GET UP TO RESTROOM FOR BM. INSTRUCTED NOT TO STRAIN. LIQUID BM IN TOILET NOTED. NEW ATTENDS IN PLACE. pt BACK IN BED WITH SCDS ON. PO PRN PAIN MEDICATION ADMINISTERED. ASSESSMENT COMPLETE. BOWEL TONES ACTIVE. DRAINAGE ON DRESSINGS UNCHANGED. WARM BLANKET PROVIDED. pt DENIES ADDITIONAL REQUESTS.
--- NOTE | 2022-01-10 06:07 | NUR ---
pt RESTING IN BED AWAKE RN ENTERS ROOM. VSS. 50 MLS SEROSANGUINOUS DRAINAGE EMPTIED FROM ROMAN DRAIN. ADAMS EMPTIED. pt RATES PAIN 8/10 IN ABDOMEN. SCHEDULED MEDICATION ADMINISTERED. WARM BLANKET PROVIDED. DENIES ADDITIONAL NEEDS. CALL LIGHT IN REACH.
--- NOTE | 2022-01-10 06:36 | NUR ---
pt WITH 50 MLS SS DRAINAGE FROM ROMAN THIS SHIFT. QS URINE OUTPUT THROUGH ADAMS CATHETER. 1PA TO RESTROOM FOR LIQUID BM THIS SHIFT, NO STRAINING, NO PROLAPSE VISIBLE. pt APPEARS TO HAVE RESTED WELL THIS SHIFT. USING CALL LIGHT APPROPRIATELY. PAIN CONTROLLED WITH PO SCHEDULED AND PRN PAIN MEDICATIONS.
--- NOTE | 2022-01-10 07:46 | NUR ---
PT. USED CALL LIGHT APPROPRIATELY FOR PAIN MED. SHE REPORTS ABD. PAIN THAT IS ACHING. PERCOCET GIVEN AND TITRATED FROM EARLIER DOSE. LEFT RESTING WITH CALL LIGHT IN REACH.
--- NOTE | 2022-01-10 08:20 | NUR ---
REPORT RECEIVED FROM NIGHT RN AND PT. CARE RESUMED. PT. IS ALERT AND ORIENTED. SHE IS IRRITABLE AT TIMES. MIDLINE DRESSING HAS A SMALL AMOUNT OF DRIED SEROSANGUINOUS DRAINAGE THAT IS DRIED BUT OTHERWISE INTACT. TOLERATING FULL LIQUID DIET AND DENIES NAUSEA. ADMIN. PERCOCET EARLIER FOR PAIN AND PT. REPORTS IT HAS IMPROVED. BOWEL TONES HYPERACTIVE THROUGHOUT. DISCUSSED MEDS, POC AND ACTIVITY. LEFT RESTING WITH CALL LIGHT IN REACH.
--- NOTE | 2022-01-10 11:20 | NUR ---
FAMILY IS ASSISTING PT WITH BED BATH, HAIR WASHED
--- NOTE | 2022-01-10 11:42 | EKG ---
[facility] [address] [facility] [place], [place] [address] Signed Normal sinus rhythm with sinus arrhythmia Left bundle branch block Abnormal ECG No previous ECGs available Confirmed by JESSEE MARX MD ([id number]) on 01/10/2022 11:42:05 AM Electronically Signed By: JESSEE MARX MD 01/10/22 1142 PATIENT NAME: QUINTON GILLIS OMARI Electrocardiogram DATE OF : 35 PHYSICIAN: JESSEE MARX MD REPORT #: [id number] REPORT IS CONFIDENTIAL AND NOT TO BE RELEASED WITHOUT AUTHORIZATION
--- NOTE | 2022-01-10 11:50 | NUR ---
Pt up in room with daughter.
--- NOTE | 2022-01-10 12:10 | NUR ---
PT. ASSISTED WITH CHANGING HER LUNCH ORDER. SHE STATES TOMATOES GIVE HER DIARRHEA. SHE DENIES FURTHER NEEDS.
--- NOTE | 2022-01-10 12:28 | NUR ---
PT. ASSISTED WITH CHANGING SOCKS AND BEDDING. DENIES FURTHER NEEDS. DAUGHTER AT BEDSIDE.
--- NOTE | 2022-01-10 13:13 | NUR ---
PT OUT TO [facility] FOR WALK WITH DAUGHTER. LINENS CHANGED AND ROOM CLEANED.
--- NOTE | 2022-01-10 13:59 | NUR ---
PT. ASSISTED WITH CLEANING AFTER HAVING A BM IN THE BATHROOM. STOOL IS LOOSE AND BROWN. PT. AMBULATED WITH 1PA TO BED AND TOLERATED WELL. SHE C/O 6/10 PAIN AFTER RECENT AMBULATION AROUND THE UNIT. ADMIN. PERCOCET. ROMAN DRAIN EMPTIED OF 100ML SEROSANGUINOUS FLUID. MIDLINE DRESSING REMAINS UNCHANGED. PT. DENIES FURTHER NEEDS. LEFT RESTING WITH CALL LIGHT IN REACH.
--- NOTE | 2022-01-10 14:40 | NUR ---
PATIENT AWAKE IN BED, VITALS I&OS CHARTED. ES IN ROOM AT THIS TIME. CALL LIGHT IN EASY REACH
--- NOTE | 2022-01-10 15:55 | PATH ---
[facility] [address] [place], [place] [address] Signed THIS IS AN ADDENDUM REPORT SPECIMEN(S): A CECUM BIOPSY SPECIMEN(S): B ASCENDING/RIGHT COLON POLYP SPECIMEN SOURCE: A. CECUM BIOPSY B. ASCENDING/RIGHT COLON POLYP CLINICAL HISTORY: Post: Cecal mass, R colon polyp, ulcerated rectum. FINAL PATHOLOGIC DIAGNOSIS: A. Colon, cecum, biopsy: - Well-differentiated adenocarcinoma. B. Colon, ascending/right, polyp, polypectomy: - Hyperplastic polyp. - Negative for dysplasia or malignancy. COMMENT: As part of [facility]' Quality Improvement Program, part A of this case was reviewed by another member of our pathology staff. Mismatch repair (MMR) studies by IHC have been ordered on specimen A and will be reported in an addendum. A diagnostic alert was initiated by Dr. Jaramillo on 01/10/2022. NAL:NRT:cml:C1NR MICROSCOPIC EXAMINATION: Histologic sections of all submitted blocks are examined by light microscopy. These findings, together with the gross examination, support the pathologic diagnosis. GROSS DESCRIPTION: Two specimens are received in two containers, labeled "." A. The specimen, labeled ", 1," and designated on the requisition "cecum biopsy," is received in formalin and consists of multiple ricardo soft tissue fragment(s) that measure 0.1 up to 0.5 cm in greatest dimension. The specimen is entirely submitted in cassette (A1). B. The specimen, labeled ", 2," and designated on the requisition "ascending/right polypectomy," is received in formalin and consists of one polypoid ricardo soft tissue fragment(s) that measure 0.8 cm PATIENT NAME: QUINTON GILLIS PATHOLOGY DATE OF : 35 REPORT #: [id number] PHYSICIAN: [employer] PATHOLOGY PCP: NACHO GARCIA MD REPORT IS CONFIDENTIAL AND NOT TO BE RELEASED WITHOUT AUTHORIZATION [facility] [address] [place], [place] [address] Signed in greatest dimension. A grossly definitive resection margin is not identified. The specimen is bisected. The specimen is entirely submitted in cassette (B1). AI (under the direct supervision of a pathologist) The Gross Description was prepared using a voice recognition system. The report was reviewed for accuracy; however, sound-alike word errors, addition and/or deletions may occur. If there is any question about this report, please contact Client Services. PERFORMING LABORATORY: The technical component was performed by [facility], [address] [place] [id number] (Pier Master: Flower Arredondo MD; CLIA# [id number]). [facility], [address] [place] [address] (CLIA# [id number]). COMMENT: Tumor cells show no loss of nuclear expression of MMR proteins. This correlates with a low probability of microsatellite instability. However, if there is a high clinical suspicion for Antonio syndrome (hereditary non-polyposis colorectal carcinoma syndrome) in this patient, additional testing should be considered. Please contact [facility] if such testing is indicated. NAL:cml ADDITIONAL NOTES: Immunohistochemical and/or in situ hybridization studies were performed on this case with the appropriate positive controls that react as expected. This test was developed and its performance characteristics determined by [facility]. It has not been cleared or approved by the U.S. Food and Drug Administration. The FDA has determined that such clearance or approval is not necessary. This test is used for clinical purposes. It should not be regarded as investigational or for research. [facility] is certified under the Clinical Laboratory Improvement Amendments of 1988 (CLIA) as qualified to perform high complexity clinical laboratory testing. REASON FOR ADDENDUM: To add results of additional testing. ADDENDUM PATHOLOGIC DIAGNOSIS: PATIENT NAME: QUINTON GILLIS PATHOLOGY DATE OF : 35 REPORT #: [id number] PHYSICIAN: [employer] PATHOLOGY PCP: NACHO GARCIA MD REPORT IS CONFIDENTIAL AND NOT TO BE RELEASED WITHOUT AUTHORIZATION [facility] [address] [place], [place] [address] Signed A. Cecum, adenocarcinoma, microsatellite instability testing by IHC: - MLH1: Intact nuclear expression. - MSH2: Intact nuclear expression. - MSH6: Intact nuclear expression. - PMS2: Intact nuclear expression. INTERPRETATION: Normal pattern. ADDENDUM MICROSCOPIC EXAMINATION: A panel of four antibodies is selected which will detect 95% of microsatellite unstable carcinomas. Testing is performed at the request of Karuna Jaramillo M.D. Block: A1. Recut HE slide is prepared from the block. The presence of neoplastic glands and non-neoplastic internal control glands or stroma is confirmed. Internal control cells for MLH1, MSH2, PMS2 and MSH6 are positive. Neoplastic gland cells show the following: - MLH1: Positive. - MSH2: Positive. - MSH6: Positive - PMS2: Positive. NAL:cml Technical testing is performed at [facility] [place]. Professional interpretation was performed by [facility], [address] [place] [address] (CLIA# [id number]). Diagnostician: Karuna Jaramillo MD Pathologist Electronically Signed 01/10/2022 Copies: ~ PATIENT NAME: QUINTON GILLIS PATHOLOGY DATE OF : 35 REPORT #: [id number] PHYSICIAN: ANAHY BAEZ PCP: NACHO GARCIA MD REPORT IS CONFIDENTIAL AND NOT TO BE RELEASED WITHOUT AUTHORIZATION
--- NOTE | 2022-01-10 17:33 | NUR ---
ADAMS REMOVED PER ORDER WITH CATH. INTACT. EMPTIED OF 400ML YELLOW URINE.
--- NOTE | 2022-01-10 19:30 | NUR ---
SHIFT REPORT RECEIVED FROM DAYSHIFT RAUL WILCOX AT [facility]. BED ALARM ON FOR SAFETY. pt AWAKE AND RESTING IN BED, RR EVEN AND UNLABORED. BOARD UPDATED, pt ASKING ABOUT POC REGARDING PAIN MEDICATION. DISUCSSED POC WITH pt. NO FURTHER NEEDS, CALL LIGHT IN REACH.
--- NOTE | 2022-01-10 21:50 | NUR ---
IN TO GET VS, PROVIDED PT WITH A LIGHT BLANKET, NO FURTHER NEEDS
--- NOTE | 2022-01-10 22:01 | NUR ---
ADMINISTERED EVENING MEDICATIONS FOR PRIMARY RN RACHEAL, PT WAS REQUESTING PAIN MEDICINE. PT REPORTS PAIN AT 10/10 AT THIS TIME. SHE HAD PERCOCET 3 HOURS AGO AND DOES NOT FEEL THAT TYLENOL WILL BE ENOUGH PAIN CONTROL. ADMINISTERED 4MG IV MORPHINE DILUTED SLOW PUSH ALONG WITH OTHER SCHEDULED EVENING MEDS. PT REPORTS SOME PAIN WITH FLUSHING IV BUT STATES IT WENT AWAY. PT DENIES FURTHER NEEDS. CALL LIGHT IS CLOSE.
--- NOTE | 2022-01-10 22:30 | NUR ---
ASSESSMENT COMPLETE, SCHEDULED HS MEDS ALREADY GIVEN, SEE EMAR. pt AWOKE TO VOICE, DENIES NEEDS OR CONCERNS. REPORTS PAIN IS IMPROVED WITH PAIN MEDICATION GIVEN FROM POCKET FLAP CREASING MACHINE OPERATORRAUL BACH. ABD MIDLINE WNL, DRESSING INTACT WITH SCANT SEROSANGUINEOUS SHADOWING-NO CHANGES FROM START OF SHIFT. pt REFUSES SCD'S WILL MONITOR. CALL LGHT IN REACH AND BED ALARM ON FOR SAFETY.
--- NOTE | 2022-01-10 23:24 | NUR ---
pt RESTING IN BED WITH EYES CLOSED, RR EVEN AND UNLABORED. NO DISTRESS NOTED. BED ALARM REMAINS ON FOR SAFETY AND CALL LIGHT IN REACH.
--- NOTE | 2022-01-11 01:16 | NUR ---
rounded on pt, pt awake and resting in bed. 1pa to bathroom to void and back to bed, steady on feet. bed alarm resumed for safety and call light in reach. no changes to abd dressing, no new shadowing. pt reports generlaized abd pain, does not rate on pain scale. declines ice pack, will monitor. assisted pt with getting comfortable, refuses scd's at this time.
--- NOTE | 2022-01-11 02:48 | NUR ---
STARTED NEW IV TO PT'S RIGHT HAND, IV TO RIGHT AC LEAKING, REMOVED TIP INTACT. PT REQUESTED SOMETHING FOR PAIN, PT MEDICATED WITH 1 PERCOCET.
--- NOTE | 2022-01-11 05:14 | NUR ---
pt RESTING IN BED WITH EYES CLOSED, RR EVEN AND UNLABORED. NO DISTRESS NOTED. CALL LIGHT IN REACH AND BED ALARM ON FOR SAFETY.
--- NOTE | 2022-01-11 06:00 | NUR ---
IN TO GET VITALS, PT UP TO THE TOILET, 1PA, BACK TO BED, PT READY FOR AM MEDS IF AVALABLE, NO FURTHER NEEDS AT THIS TIME
--- NOTE | 2022-01-11 07:03 | NUR ---
SCHEDULED TYLENOL GIVEN FOR 8/10 PAIN, HALF DOSE GIVEN PT ALSO RECIEVING PRN PERCOCET. BED ALARM REMAINS ON FOR SAFETY AND CALL LIGHT IN REACH.
--- NOTE | 2022-01-11 08:40 | NUR ---
REPORT RECEIVED FROM NIGHT RN AND PT. CARE RESUMED. PT. IS ALERT AND ORIENTED. AMBULATED WITH 1PA TO THE BATHROOM AND TOLERATED WELL. MIDLINE DRESSING HAS A SMALL AMOUNT OF RED DRAINAGE BUT IS OTHER CHAVEZ INTACT AND DRY. ROMAN PATENT AND EMPTIED OF 30ML OF SEROSANGUINOUS FLUID. PT. ENCOURAGED TO AMBULATE AND IS AGREEABLE TO WALKING THIS MORNING. BOWEL TONES ACTIVE AND LUNGS CLEAR. DISCUSSED MEDS, POC AND SAFETY LEFT RESTING WITH CALL LIGHT IN REACH.
--- NOTE | 2022-01-11 10:30 | NUR ---
PT. AMBULATING WITH DAUGHTER AROUND THE UNIT AND TOLERATED WELL. ASSISTED WITH BEDDING AND LEFT RESTING WITH FAMILY AT BEDISIDE.
--- NOTE | 2022-01-11 10:45 | NUR ---
Spoke with pt, daughter and son in law. Pt discussing if she might go home. Let her know she will need to discuss with the Dr. Reviewed if she has any needs to go home. Discussed a walker, pt declines as she feels there is not enought space. They discussed they have access to a walker if needed. We also discussed it is helpful for getting up and down. I also suggested a commode over the toilet to use the handles. Pt states she has a spot she holds onto on her counter and does not want. Daughter states she will go to [facility] and get DME if needed. They deny any other needs. Mom will go home with her son. Family awaiting to hear from if pt will dc today.
--- NOTE | 2022-01-11 11:21 | NUR ---
PT SITTING UP IN BED, ALERT AND ORIENTED. PT MENTIONED SHE HAD JUST HAD A BRIEF NAP, FEELING BETTER. PT HOPES TO DC LATER TODAY. FAMILY ARRIVED FOR VISIT. PT REQUESTED PRAYER, GAVE G.POST AND WILL FOLLOW
--- NOTE | 2022-01-11 13:45 | NUR ---
PT USED CALL LIGHT FOR ASSISTANCE WITH REMOVING TRAY AND AMBULATING TO THE BATHROOM. AMBULATED WITH 1PA AND TOLERATED WELL. NO SIGNS OF RECTAL PROLAPSE. PT. LEFT RESTING WITH CALL LIGHT IN REACH.
--- NOTE | 2022-01-11 14:42 | NUR ---
PATIENT SITTING UP IN BED, VITALS AND I&OS CHARTED. GARBAGE EMPTIED, FRESH WATER AND ENSURE PROVIDED. CALL LIGHT IN EASY REACH
--- NOTE | 2022-01-11 19:10 | NUR ---
SHIFT REPORT RECEIVED FROM DAYSHIFT RN JERI AT BEDSIDE. pt AWAKE AND RESTING IN BED, BED ALARM ON FOR SAFETY AND CALL LIGHT IN REACH. pt REFUSES SCD'S AT THIS TIME, EDUCATION PROVIDED. BOARD UPDATED, pt ON RA. RR EVEN AND UNLABORED. NO DISTRESS NOTED.
--- NOTE | 2022-01-11 20:35 | NUR ---
BED ALARM SOUNDED, PT WAS SITTING AT THE EDGE OF THE BED. 1PA TO RESTROOM AND BACK TO BED. PT HAD SM LOOSE BM MIXED IN WITH URINE. PROVIDED WARM BLANKET AND PT WOULD LIKE HER PAIN MEDS. NOTIFIED PRIMARY RAUL SPRINGER, SHE WILL BE IN SHORTLY.
--- NOTE | 2022-01-11 20:39 | NUR ---
IN ROOM TO ASSESS pt's PAIN, pt REPORTS 9-10/10 PAIN, FACIAL GRIMACING NOTED, BUT NO DISTRESS. pt RECENTLY RETURNED FROM BATHROOM TO VOID, UNABLE TO GIVE PRN OR SCHEDULED PAIN MEDICATION AT THSI TIME, pt DUE FOR PAIN MEDS AT [phone], pt VERBALIZED UNDERSTANDING, WILL RETURN FOR PAIN MEDICATION ADMINISTRATION, ICE PACK DECLINED BY pt.
--- NOTE | 2022-01-11 21:22 | NUR ---
CALL LIGHT ANSWERED, pt AGAIN ASKING FOR PAIN MEDICATION, MARCOS GIANG IN ROOM ALREADY TO COLLECT VS AND I&O'S, ASSESSMENT COMPLETE. pt CONTINUES TO REPORT 10/10 PAIN, DISCUSSED POC OPTIONS WITH pt, PRN PEROCET GIVEN, SEE EMAR. SCHEDULED TYLENOL HELD PER CLINICAL JUDGEMENT. pt WAS BEING TITRATED TO FULL DOSE OF PERCOCET ON DAYSHIFT. WILL CONTINUE TO MONITOR. BED ALARM PLACED FOR pt SAFETY PAIN MEDICATION CAN CAUSE DROWSINESS. VERBAL EDUCATION PROVIDED, pt VERBALIZES UNDERSTANDING. VSS, NO CHANGES TO MIDLINE INCISION. WILL CONTINUE TO MONITOR.
--- NOTE | 2022-01-11 22:43 | NUR ---
ROUNDED ON pt, pt AWAKE AND RESTING IN BED, REQUESTS SCD'S BE TAKEN OFF, ASSISTANCE PROVIDED. NO FURTHER NEEDS, CALL LIGHT IN REACH.
--- NOTE | 2022-01-11 23:43 | NUR ---
pt RESTING IN BED WITH EYES CLOSED, RR EVEN AND UNLABORED. NO DISTRESS NOTED. BED ALARM ON FOR SAFETY AND CALL LIGHT IN REACH.
--- NOTE | 2022-01-12 00:43 | NUR ---
pt CONTINUES TO REST IN BED WITH EYES CLOSED. RR EVEN AND UNLABORED, NO DISTRESS NOTED. BED ALARM REMAINS ON FOR SAFETY, CALL LIGHT IN REACH AND BED ALARM ON FOR SAFETY.
--- NOTE | 2022-01-12 02:30 | NUR ---
IN TO ASSIST PT UP TO THE TOILET, 1PA WITH HAND HELD FOR SUPPORT, BACK TO BED, NOD FURTHER NEEDS AT THIS TIME
--- NOTE | 2022-01-12 02:35 | NUR ---
ROUNDED ON pt, RADIOLOGIC TECHNOLOGIST MAMMOGRAM PADMAJA ASSITING pt TO BATHROOM TO VOID. SPO2 MID 90'S ON RA, HR WNL. NO NEEDS VERBALIZED.
--- NOTE | 2022-01-12 06:10 | NUR ---
call light answered, pt up sba to void. tennis camp instructor mikki in room to assist. abd incision unchanged, steri strips remains in place. no prolapse noted. pt reports 10/10 pain, no distress noted. pt engaging in conversation and interactive with staff. prn pain medication given, see emar. bed alarm remains on and call light in reach.
[2022-01-12] MEDS ORDERED: OXYCODON-ACETA1 EAC2 PO (10:15)
[2022-01-12] MEDS ORDERED: ACETAMINOPHEN500 MG PO (10:16)
[2022-01-12] MEDS ORDERED: CITRUCEL479 GM PO (10:17)
--- NOTE | 2022-01-12 11:23 | HP ---
[facility] [address] [place], [place] [address] Signed ADMISSION DATE: 01/04/2022 REASON FOR ADMISSION: Previously nonreducible rectal prolapse. HISTORY: This 86-year-old white woman is accompanied by her daughter, who is a patient of mine. The patient generally is in very good health, though has been diagnosed with congestive heart failure about a year ago. She takes no specific medications for this and does not have much in the way of symptoms in recent times at least. She is a patient of Dr. Maria Teresa Garcia. She was noted to have profound rectal bleeding at home yesterday and some protrusion of the rectum and then presented to the emergency room where she was evaluated by Dr. Ibanez. Her daughter is a retired nurse and recognized rectal prolapse. A dressing was applied to the area and she was brought to the emergency room on the basis of those findings. The rectal prolapse was seen by Dr. Ibanez, and he was unable to manually reduce it. I was called on that basis. The patient is noted "moistness" in the perineum. She has a history of a rectocele repair she says. She did not return for additional evaluation or treatment of this related to the fact that the problem was not particularly problematic. She denies general urinary incontinence or fecal incontinence. Notes reviewed from [address] Yissel Baker noting her prior childbirth history and history of hysterectomy and treatment for rectocele and enterocele. Review of the operative report shows enterocele resection and the rectocele repair was accomplished. CURRENT MEDICATION LIST: Includes dorzolamide eyedrops, ipratropium bromide as needed for allergies, latanoprost 0.005% eyedrops one drop in each eye each night as well as brimonidine 0.2% one drop in the affected eye 3 times a day as well as metoprolol 25 mg half tab p.o. b.i.d. She additionally takes timolol 0.5% eyedrops in each eye. REVIEW OF SYSTEMS: She denies any shortness of breath or chest pain. She has had no dysphagia or dysuria. She has had rather profound rectal bleeding very significant upon standing. She was unable to reduce her rectal prolapse at home, it is noted. PHYSICAL EXAMINATION: GENERAL: A pleasant white woman, who does not look systemically toxic. She has no evidence of dementia whatsoever. Electronically Signed By: JOSELO LASSITER MD 01/12/22 1123 PATIENT NAME: QUINTON GILLIS HISTORY AND PHYSICAL DATE OF : 35 REPORT #: [id number] PHYSICIAN: JOSELO LASSITER MD PCP: MARIA TERESA GARCIA MD REPORT IS CONFIDENTIAL AND NOT TO BE RELEASED WITHOUT AUTHORIZATION [facility] [address] [place], [place] [address] Signed VITAL SIGNS: Temperature is 98.6. Blood pressure is 116/65, pulse 88, respirations 23. NECK: Shows no thyromegaly or cervical adenopathy. Trachea is midline. CHEST: Clear. HEART: Regular. I detect no murmur. ABDOMEN: Nondistended and soft. There is no ascites. In the lateral position with her daughter in attendance, examination of the perineum was undertaken. She does have some external hemorrhoidal disease, but the previously noted rectal prolapse is completely reduced spontaneously at this point. Additional pelvic examination was not undertaken at this time. EXTREMITIES: Show no clubbing, cyanosis, or edema. ASSESSMENT: The patient has suffered what appears to be her first significant episode of rectal prolapse. Discussion with Dr. Ibanez, who observed the prolapse, notes that it was at least 4-6 inches in length to his exam and he was unable to reduce it spontaneously. With relaxation and supine position, it appears to have reduced on its own. It was not noted to have excoriation or dessication even to that extent, however, the source for bleeding most likely came from excoriation of the prolapsed segment. The patient notes she has never had colonoscopy or colon evaluation in the other way. Under the circumstances, I think it would probably be best to admit to the hospital and make some effort at bowel preparation anticipating most likely a perineal proctectomy in a less emergent circumstance. I discussed this with the patient and her daughter in detail. We will attempt a bowel prep mindful that straining upon defecation will certainly make rectal prolapse more probable. The prolapse itself is not as problematic as prolapse with non-reduction, which would progress to ischemia and infarction. She will generally be not standing and will be avoiding excessive straining. Whether or not preprocedure colonoscopy be undertaken remains to be seen; however, she has not had colonoscopy in the past and if a neoplastic process is accounting for bleeding or is accounting for her cause of prolapse that would be certainly likely to modify her approach to management. Joselo Lassiter MD Electronically Signed By: JOSELO LASSITER MD 01/12/22 1123 PATIENT NAME: QUINTON GILLIS HISTORY AND PHYSICAL DATE OF : 35 REPORT #: [id number] PHYSICIAN: JOSELO LASSITER MD PCP: MARIA TERESA GARCIA MD REPORT IS CONFIDENTIAL AND NOT TO BE RELEASED WITHOUT AUTHORIZATION [facility] [address] [facility] [place] [address] Signed /JOSE ENRIQUE /[id number] cc: Dr. Maria Teresa Ibanez [facility] Copies: ~ Electronically Signed By: JOSELO LASSITER MD 01/12/22 1123 PATIENT NAME: QUINTON GILLIS HISTORY AND PHYSICAL DATE OF : 35 REPORT #: [id number] PHYSICIAN: JOSELO LASSITER MD PCP: MARIA TERESA GARCIA MD REPORT IS CONFIDENTIAL AND NOT TO BE RELEASED WITHOUT AUTHORIZATION
--- NOTE | 2022-01-12 11:31 | NUR ---
One tab Percocet 7.5/325mg po admin at this time per pt request. Dr. Quiroz gave verbal order to admin at this time early.
--- NOTE | 2022-01-13 11:19 | OR ---
[facility] [address] [place], [place] [address] Signed DATE OF OPERATION: 01/08/2022 SURGEON: Joselo Lassiter MD PREOPERATIVE DIAGNOSES: 1. Cecal carcinoma with resultant anemia. 2. Recurrent rectal prolapse (new onset). 3. 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 Right segment 6 hepatic lesion suggestive of metastatic disease. POSTOPERATIVE DIAGNOSES: 1. Cecal carcinoma with resultant anemia. 2. Recurrent rectal prolapse (new onset). 3. 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 Right segment 6 hepatic lesion suggestive of metastatic disease. PROCEDURE: 1. Laparotomy with right hemicolectomy and end ileo to side transverse colostomy. 2. Excision of giant pelvic mass; right ovarian origin. 3. Bilateral salpingo-oophorectomy. 4. Rectopexy to sacral promontory. 5. Biopty gun biopsy of palpable nodule segment 6 of liver x2. BASKET WEAVER: Nurse (Magaly Velez RN). ANESTHESIA: General endotracheal, Ken Herman CRNA and preoperative bilateral TAP block. INDICATION: This 86-year-old white woman presented to the emergency room with significant rectal prolapse as identified by Dr. Ibanez. She had not had such a problem in the past. Attempts at reduction by the emergency room were unsuccessful, spontaneous reduction was noted upon supine positioning. She was admitted for further evaluation and care. She was noted to have only recent onset of rectal prolapse and a fair amount of rectal bleeding associated with this. She appeared to be anemic with hematocrit of only 27, and on that basis, underwent bowel prep and the next day colonoscopy (Friday). This demonstrated excoriation of the midportion of the rectum consistent with recent rectal prolapse, but more importantly confirmed an ulcerated neoplasm of the cecum more likely Electronically Signed By: JOSELO LASSITER MD 01/13/22 1119 PATIENT NAME: QUINTON GILLIS OPERATIVE REPORT DATE OF : 35 REPORT #: [id number] PHYSICIAN: JOSELO LASSITER MD PCP: MARIA TERESA GARCIA MD REPORT IS CONFIDENTIAL AND NOT TO BE RELEASED WITHOUT AUTHORIZATION [facility] [address], [place] [address] Signed accounting for her anemia. 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 Notably, the patient has had hysterectomy in the past. She has additionally had cholecystectomy and apparently appendectomy. The patient did undergo one packed red cell transfusion bringing her hematocrit into the mid 30s. The patient does have recurrent rectal prolapse when straining or standing, but generally spontaneously reduces currently. I have recommended exploration of the abdomen. right colectomy for the malignancy, liver biopsy as appropriate, excision of the pelvic mass and more recently this morning recommended operative intervention of the rectal prolapse if possible-- specifically rectopexy without resection. I believe sigmoid resection concurrently with right colectomy may be a bit too much, given her advanced age and so on. Understanding the risks of this, she wishes to proceed. Notably, if she should have recurrent rectal prolapse, consideration will be made for a perineal proctectomy. DESCRIPTION OF PROCEDURE: The patient was brought to the operating room, given a general endotracheal anesthetic. A full bowel prep had been given including oral antibiotics and preoperative antibiotic cefoxitin given. Sequential compression device stockings were placed. A Alexandra catheter was placed as well. The abdomen clipped and prepared with a chlorhexidine solution extending from nipples to knees. A previous midline incision from prior hysterectomy was noted extending up to the umbilicus. Gentle palpation of the abdomen prior to incision did identify a palpable mass in the right lower quadrant with the benefit of abdominal wall relaxation. Incision was made extending from the symphysis pubis to the umbilicus. The abdomen was entered without problem and clear ascites type fluid was noted. There was no evidence of generalized carcinomatosis in any way. A bulky pelvic mass was noted, which took up essentially all of the space of the pelvic inlet. Despite gentle manipulation of the mass, it bled rather readily and this area was packed off. Attention was turned towards the colon. The right colon clearly had a malignancy at the cecum. There appeared to be absence of the appendix proper. The terminal ileum was normal. Endo rambo tattoo dye was noted from a polypectomy performed in the right colon trending towards the right transverse colon. There appeared to be no Electronically Signed By: JOSELO LASSITER MD 01/13/22 1119 PATIENT NAME: QUINTON GILLIS OPERATIVE REPORT DATE OF : 35 REPORT #: [id number] PHYSICIAN: JOSELO LASSITER MD PCP: MARIA TERESA GARCIA MD REPORT IS CONFIDENTIAL AND NOT TO BE RELEASED WITHOUT AUTHORIZATION [address] [address] Signed gross mesenteric adenopathy of the right colonic mesentery. Inspection of the liver both visibly and palpably did not demonstrate obvious tumor nodule for biopsy. Stomach appeared normal. The small-bowel was normal. A Bookwalter retractor was affixed to the table. The small-bowel was packed to the left side of the abdomen and ultimately packed upward and Trendelenburg position allowed for isolation of enteric contents from the pelvis. The pelvic mass was quite multilobulated, very friable and right adnexal structures were splayed over it. The packing was removed and the friable tumor mass appeared to be probably attached to the right pelvic sidewall. Clearly, resection of the mass would be needed and on that basis, gentle manipulation around it showed it to have no significant attachments medially or inferiorly or deep within the pelvis-- only in the pelvic sidewall. The adnexal structures on the right were carefully isolated with electrocautery dissection and secured with tonsil clamps and doubly secured with 0 Vicryl stick ties. Various manipulations allowed for the infundibulopelvic structures to be clearly from the ovarian mass were secured with tonsil clamps and ultimately ligated with suture ligature of 0 Vicryl and 0 silk ties as well. With gentle manipulation, the mass was explanted from the pelvis and passed for pathology. It measured approximately 9-10 cm. Inspection in the pelvis itself showed minimal oozing on the right pelvic sidewall, this was packed off. The sigmoid was examined and had no palpable mass, but did have redundancy. The pelvic floor itself was not particularly patulous. The table was returned to a neutral position and packing left in the pelvis for hemostasis. Attention was then turned towards the colon itself. The cecal lesion did not invade the pelvic sidewall, so far as could be told. The small-bowel was packed to the left, secured with attachments for the Bookwalter retractor. The white line of Toldt was incised and the right colon dissected free from a lateral to medial direction, mindful of retroperitoneal structures, which were left unharmed and in situ. The right kidney appeared normal. The right colonic mesentery was freed to the midline and dissection carried superiorly over the hepatic flexure. Mostly blunt electrocautery dissection was used to separate the membrane and reveal the transverse mesocolon. The duodenum was easily identified and unharmed. Transillumination of the mid colonic transverse mesentery showed several branches, which appeared to be in the middle colic vascular supply. An Endo rambo tattoo dye had been applied in the region of the hepatic flexure demarcating a separate polyp that was excised, for which pathology is still pending. Resection of the site in continuity with the right colon was deemed most appropriate. The mesentery was scored with electrocautery and serial application of hemostats undertaken dividing the vascular pedicles and ultimately securing with 0 silk ties. Extra dissection was taken along the ileocolic artery, which was rather firm and Electronically Signed By: JOSELO LASSITER MD 01/13/22 1119 PATIENT NAME: QUINTON GILLIS OPERATIVE REPORT DATE OF : 35 REPORT #: [id number] PHYSICIAN: JOSELO LASSITER MD PCP: MARIA TERESA GARCIA MD REPORT IS CONFIDENTIAL AND NOT TO BE RELEASED WITHOUT AUTHORIZATION [facility] [address] [place] [id number] Signed initially thought possibly to have involvement of lymph nodes. Upon further dissection, however, it was simply that artery did have calcification, given her advanced age. Once complete mesenteric ligation was accomplished, transection of the mid transverse colon with an 80 mm RUFUS stapling device was accomplished. Similarly, approximately 8 cm proximal to the ileocecal valve, the terminal ileum was also transected. The specimen was opened and found to include the previous polypectomy site in the right colon or hepatic flexure as well as an ulcerated bulky mass consistent with malignancy in the cecum. The specimen was passed for permanent pathology. Attention was turned towards the anastomosis. An end-to-side ileotransverse colostomy was undertaken in a two-layer technique of interrupted 3-0 Vicryl in the mucosal layer and 3-0 silk suture for the serosal layer. Notably, the stapled end of the mid transverse colon had been oversewn with 3-0 silk suture. Mesenteric defect was reapproximated with interrupted 3-0 silk sutures to avoid transmesenteric herniation. The irrigation was undertaken and isolating laparotomy packs removed. The table was placed once again into a Trendelenburg position, the bowel packed in the upper abdomen and inspection of the pelvis undertaken. The right adnexae that remained were carefully dissected free in the standard way vascular pedicles to it secured with tonsil clamps and ligated with 0 silk ties. The right salpinx was sent as a specimen. Similar dissection was undertaken on the left side. An atretic ovarian remnant was noted and complete excision of the left ovary as well as the left tube structures undertaken in a similar way. Good hemostasis was noted. Attention was then turned towards the pelvis. The rectosigmoid did indeed appear somewhat redundant and the pelvic floor muscles not as hinton as one usually sees, no doubt accounting for rectal the prolapse issue. A posterior rectopexy was deemed most appropriate to address the rectal prolapse rather than sigmoid resection, given her advanced age and so forth. If recurrent rectal prolapse should occur, a perineal proctectomy might be a consideration in her case. The peritoneum at the pelvic inlet was incised circumferentially on the left side allowing for blunt dissection in the presacral space. A mesorectum was left in continuity with the rectosigmoid itself. The avascular plane was dissected free, mindful of a few sacral nerves and avoiding injury to them. Dissection was undertaken with sharp and blunt dissection ultimately passing in the examining finger along the sacral hollow and the distal-most portion of the sacrum and ultimately the lowest part of the rectum. The coccyx could be palpated indicating the low extent of the dissection. An avascular plane in the region of the sacral promontory was identified. Using 0 silk Electronically Signed By: JOSELO LASSITER MD 01/13/22 1119 PATIENT NAME: QUINTON GILLIS OPERATIVE REPORT DATE OF : 35 REPORT #: [id number] PHYSICIAN: JOSELO LASSITER MD PCP: MARIA TERESA GARCIA MD REPORT IS CONFIDENTIAL AND NOT TO BE RELEASED WITHOUT AUTHORIZATION [facility] [address] [place], [place] [address] Signed suture, a posterior rectopexy was undertaken. Three such repair sutures were used bolstering the rectum higher in the pelvis. A stab incision was made on the left side allowing for placement of a Garcia drain in the depths of the pelvis. The peritoneal remnant was reapproximated with 2-0 Vicryl suture. Attention was turned towards the upper part of the abdomen. She was placed in a reverse Trendelenburg position. Irrigation undertaken throughout the abdomen. Reinspection of the liver did not show any surface lesions to allow for easy identification and biopsy. Mindful of the CT scan images palpation in the right lobe of the liver posteriorly (segment 6,7,8, etc.,) was undertaken and identifying a firm nodular abnormality most likely consistent with a lesion identified on the CT. A biopty gun core biopsy were undertaken of the palpable site. Two such specimens were taken. Bleeding was easily controlled with pressure. A clip was affixed to the liver capsule at the site of biopsy for future reference and to assure accuracy of site of the biopsy. Attention was then turned towards closure. Irrigation was undertaken once again and the midline fascia reapproximated with running bidirectional #1 PDS suture. The skin was closed running subcuticular 3-0 Vicryl, Steri-Strips were applied as was an Acticoat dressing and also a plain gauze to the drain site. The patient tolerated procedure well. Blood loss was estimated 200 mL in aggregate. Sponge, needle, and instrument counts reported as correct x3. The operation was definitely prolonged complicated and difficult given the extent and numnber of operative interventions undertaken. Joselo Lassiter MD JM/MODL /[id number] cc: Maria Teresa Garcia MD [facility] Electronically Signed By: JOSELO LASSITER MD 01/13/22 1119 PATIENT NAME: QUINTON GILLIS OPERATIVE REPORT DATE OF : 35 REPORT #: [id number] PHYSICIAN: JOSELO LASSITER MD PCP: MARIA TERESA GARCIA MD REPORT IS CONFIDENTIAL AND NOT TO BE RELEASED WITHOUT AUTHORIZATION [address] [address] Signed Copies: RAJ IBANEZ ~ Electronically Signed By: JOSELO LASSITER MD 01/13/22 1119 PATIENT NAME: QUINTON GILLIS OMARI OPERATIVE REPORT DATE OF : 35 REPORT #: [id number] PHYSICIAN: JOSELO LASSITER MD PCP: MARIA TERESA GARCIA MD REPORT IS CONFIDENTIAL AND NOT TO BE RELEASED WITHOUT AUTHORIZATION
--- NOTE | 2022-01-13 11:19 | DS ---
[facility] [address], [place] [address] Signed ADMISSION DATE: 01/04/2022 DISCHARGE DATE: 01/12/2022 REASON FOR ADMISSION: This 86-year-old white woman presents to the emergency room with findings consistent with rectal prolapse. She was evaluated by Dr. Ibanez and prompt consultation was undertaken with me. The rectal prolapse was her 1st episode and was not reducible manually by Dr. Ibanez. She was noted to have spontaneous reduction of the rectal prolapse, laying quietly for some amount of time prior to my evaluation. On the basis of her rectal prolapse problem, she was admitted for further evaluation and care. PERTINENT PHYSICAL EXAMINATION: GENERAL APPEARANCE: At time of presentation, showed a non-systemically toxic white woman without evidence of dementia. VITAL SIGNS: Temperature is 98.6, blood pressure 116/65, pulse 88, and respirations 23. CHEST: Clear. HEART: Regular without murmur. ABDOMEN: Mild, without distention and was soft. There was no sign of ascites. The lateral decubitus position left side down showed minimal external hemorrhoidal disease and no signs of persistent rectal prolapse. HOSPITAL COURSE: She was admitted on the basis of her significant rectal prolapse, which were initially was not reducible. Her lab studies at admission showed a hematocrit of 35.2, but the patient had rather significant and profound rectal bleeding associated with her presentation. On that basis, she was admitted for further observation. Her post admission, CBC showed a hematocrit of 27.3. This was considered far lower than would be generally expected even with excoriation from a rectal prolapse problem. Notably, the patient has never had colonoscopy. She underwent a full bowel prep and on January 05, 2022, she underwent colonoscopy. 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 She had sigmoid diverticulosis and an additional sessile right mid colonic polyp, which was additionally excised. Given those findings and thus, explanatory as to her significant anemia, she underwent a CT scan of the abdomen on January 06. This confirmed findings of an abnormality at the cecum, but additionally noted a large pelvic mass related to the right ovary as well as Electronically Signed By: JOSELO LASSITER MD 01/13/22 1119 PATIENT NAME: QUINTON GILLIS DISCHARGE SUMMARY DATE OF : 35 REPORT #: [id number] PHYSICIAN: JOSELO LASSITER MD PCP: MARIA TERESA GARCIA MD REPORT IS CONFIDENTIAL AND NOT TO BE RELEASED WITHOUT AUTHORIZATION [facility] [address], [place] [address] Signed a right hepatic lobe lesion highly suggestive of metastatic disease. A CEA was obtained, which was found to be 55. The patient underwent transfusion of one packed red cell and underwent exploration of the abdomen on January 08, 2022. This included excision of large pelvic mass and bilateral salpingo-oophorectomy; the uterus was absent from prior hysterectomy. Additionally, right colectomy was performed. She had no evidence of carcinomatosis. A very wide extensive mesenteric resection was undertaken in conjunction with the right colectomy and the end-to-side ileotransverse colostomy performed as well. An operative rectopexy without sigmoid resection was undertaken through a left-sided peritoneal fold incision to remedy the rectal prolapse problem. Additionally, a core biopsy was obtained of the right lobe of the liver. Notably, there was no visible lesion of the right lobe of the liver as had been seen on the CT scan, but there was a palpable abnormality corresponding to the CT scan and biopsy was obtained with a Biopty gun device in that area. Additionally, there was no evidence of carcinomatosis or signs of other hepatic lesions. Postoperatively, she was advanced to a clear liquid diet the night of surgery and the 1st postoperative day, a full liquid diet. Bilateral TAP blocks had been placed. She had prompt resumption of bowel function and advancing of her diet to regular diet, which she tolerated well. Her post transfusion hematocrit was reasonably stable at 27.9. The drain was placed in the presacral space following rectopexy and had minimal fluid output at 48 hours and was removed. By day of discharge, she was ambulating well, tolerating a regular diet, has incisional pain, well-controlled with oral analgesics and is doing well. Notably, she has had no further episodes of rectal prolapse. Her repair appears to be holding up at this point. She had a large bowel movement without problem the day of discharge. FOLLOWUP PLAN: She is to return to see me in approximately 4 weeks. By then her final pathology report will be available. 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 The additional polyp was hyperplastic. 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 The extent to which the bulky right ovarian neoplasm was contributing to the rectal prolapse is uncertain. DISCHARGE MEDICATIONS: 1. Percocet 7.5/325 one to two p.o. q.6 hours p.r.n. pain #10. Electronically Signed By: JOSELO LASSITER MD 01/13/22 1119 PATIENT NAME: QUINTON GILLIS OMARI DISCHARGE SUMMARY DATE OF : 35 REPORT #: [id number] PHYSICIAN: JOSELO LASSITER MD PCP: MARIA TERESA GARCIA MD REPORT IS CONFIDENTIAL AND NOT TO BE RELEASED WITHOUT AUTHORIZATION [facility] [address], [place] [address] Signed 2. Tylenol 500 mg two tablets p.o. q6 hours p.r.n. pain #60. 3. Citrucel one scoop a powder p.o. daily with added water. 4. She will continue usual medications dorzolamide 2% solution one drop each eye three times a day, ipratropium bromide 42 mcg one spray nasally four times a day in each nostril. 5. Latanoprost 0.005% drops, one drop each eye at bedtime. 6. Metoprolol 25 mg tablets, half tab p.o. b.i.d. 7. Brimonidine ophthalmic drops 0.2%, one drop each eye three times a day. 8. Timolol maleate 0.5% drops, one drop each eye b.i.d. 9. Artificial Tears as needed. 10. Citracal D extended release two tablets p.o. b.i.d. 11. Multivitamin one tablet p.o. daily. 12. Vitamin C 500 mg p.o. b.i.d. DISCHARGE DIAGNOSES: 1. Presentation of rectal prolapse subsequently finding large pelvic right ovarian mass greater than 10 cm and concurrent right hepatic lobe probable metastatic lesion and cecal carcinoma. 2. Status post abdominal exploration, right colectomy with end-to-side ileocolostomy, operative rectopexy without resection of sigmoid, bilateral salpingo-oophorectomy, and Biopty gun biopsy right lobe of liver lesions. 3. History of glaucoma. 4. History of hysterectomy without salpingo-oophorectomy. 5. Hypertension. FOLLOWUP PLAN: She will return to see me in approximately 4 weeks. She will call on Friday to schedule appointment. She should follow up additionally with her primary provider, Dr. Maria Teresa Garcia as per usual. Joselo Lassiter MD /JOSE ENRIQUEL /[id number] cc: Maria Teresa Garcia MD Electronically Signed By: JOSELO LASSITER MD 01/13/22 1119 PATIENT NAME: QUINTON GILLIS DISCHARGE SUMMARY DATE OF : 35 REPORT #: [id number] PHYSICIAN: JOSELO LASSITER MD PCP: MARIA TERESA GARCIA MD REPORT IS CONFIDENTIAL AND NOT TO BE RELEASED WITHOUT AUTHORIZATION [facility] [address], [place] [address] Signed Edward Ibanez Copies: EDWARD IBANEZ ~ Electronically Signed By: JOSELO LASSITER MD 01/13/22 1119 PATIENT NAME: QUINTON GILLIS DISCHARGE SUMMARY DATE OF : 35 REPORT #: [id number] PHYSICIAN: JOSELO LASSITER MD PCP: MARIA TERESA GARCIA MD REPORT IS CONFIDENTIAL AND NOT TO BE RELEASED WITHOUT AUTHORIZATION
== END 2022-01-12 11:30 | disposition home or self-care (01) | DRG 330 ==
LOC: ED 15:50 → MS 18:42
PROVIDERS: ADMIT Surgery; ATTEND Surgery
PROC: 30233N1 Transfusion of Nonautologous Red Blood Cells into Peripheral Vein, Percutaneous Approach (ICD-10-PCS; 2022-01-04)
PROC: 0DTF0ZZ Resection of Right Large Intestine, Open Approach (ICD-10-PCS; 2022-01-08)
PROC: 0WBH0ZX Excision of Retroperitoneum, Open Approach, Diagnostic (ICD-10-PCS; 2022-01-08)
PROC: 0FB10ZX Excision of Right Lobe Liver, Open Approach, Diagnostic (ICD-10-PCS; 2022-01-08)
PROC: 0D1N0Z4 Bypass Sigmoid Colon to Cutaneous, Open Approach (ICD-10-PCS; 2022-01-08)
PROC: 0DQP0ZZ Repair Rectum, Open Approach (ICD-10-PCS; 2022-01-08)
PROC: 0DBK0ZX Excision of Ascending Colon, Open Approach, Diagnostic (ICD-10-PCS; 2022-01-08)
PROC: 0DBN8ZX Excision of Sigmoid Colon, Via Natural or Artificial Opening Endoscopic, Diagnostic (ICD-10-PCS; 2022-01-08)
PROC: 3E0T3BZ Introduction of Anesthetic Agent into Peripheral Nerves and Plexi, Percutaneous Approach (ICD-10-PCS; 2022-01-08)
PROC: 0UT60ZZ Resection of Left Fallopian Tube, Open Approach (ICD-10-PCS; 2022-01-08)
PROC: 0UT10ZZ Resection of Left Ovary, Open Approach (ICD-10-PCS; 2022-01-08)
PROC: 0DBH8ZX Excision of Cecum, Via Natural or Artificial Opening Endoscopic, Diagnostic (ICD-10-PCS; principal; 2022-01-08 07:00)
DX: C18.0 Malignant neoplasm of cecum (principal); K62.5 Hemorrhage of anus and rectum; K62.3 Rectal prolapse; K57.30 Diverticulosis of large intestine without perforation or abscess without bleeding; D64.9 Anemia, unspecified; Z90.49 Acquired absence of other specified parts of digestive tract; Z93.2 Ileostomy status; H40.9 Unspecified glaucoma; I11.0 Hypertensive heart disease with heart failure; I50.9 Heart failure, unspecified; N83.9 Noninflammatory disorder of ovary, fallopian tube and broad ligament, unspecified; Z20.822 Contact with and (suspected) exposure to COVID-19
CPT/HCPCS: 00790; 00811; 36415; 36430; 74177; 76942; 80048; 80053; 81001; 85025; 85610; 86304; 86850; 86900; 86901; 86922; 88305; 88307; 88309; 88313; 88341; 88342; 93005; 93010; 99284; A9270; J0131; J0330; J0610; J0694; J1100; J2001; J2270; J2370; J2405; J2704; J2795; J3475; J3480; J7060; J7120; J7121; P9016; Q9967; U0003

== ENCOUNTER 2022-08-26 12:56 | Inpatient (IN) | payer MEDICARE ==
[~2022-08-26] VITALS: Ht 149.9 cm; Wt 45.6 kg
[~2022-08-26 12:56] MED LIST: ACETAMINOPHEN500 MG PO; ARTIFICIAL TEAR15 ML OPTH; BRIMONIDINE TART5 ML OU; CENTRUM SILVER1 EAC3 PO; CITRACAL + D E1 EACH PO; CITRUCEL479 GM PO; DORZOLAMIDE HCL10 ML OU; IPRATROPIUM BRO15 ML NAS; LATANOPROST2.5 ML OU; METOPROLOL TART25 MG PO; OXYCODON-ACETA1 EAC2 PO; TIMOLOL MALEATE5 M2 OU; VITAMIN C500 M1 PO
[2022-08-26] MEDS ORDERED: LASIX20 MG PO (13:22)
[2022-08-26] MEDS ORDERED: K-TAB10 MEQ PO (13:22)
--- NOTE | 2022-08-26 17:25 | NUR ---
REPORT RECIEVED FROM BANK GUARDRAUL WEST, CARE OF PT ASSUMED AT THIS TIME. PT ARRIVED VIA STRETCHER ON [employer] SCIENTIST. DAUGHTER ARRIVED WITH PTS. PT HAD BOWEL MOVEMENT UPON INITIAL ARRIVAL. UP TO BSC TO HAVE BOWEL MOVEMENT. ONE PERSON ASSIST REQUIRED. PT WEAK BUT STEADY ON FEET. HEART RATE IN THE 140S WITH ACTIVITY.
--- NOTE | 2022-08-26 18:15 | NUR ---
ASSESSMENT COMPLETED. PT HAS BILATERAL LOWER LEG EDEMA. CRACKLES NOTED IN BILATERAL LUNG BASES. PT DENIES PAIN OR SHORTNESS OF BREATH. HEART RATE IN THE 140S-150S AT REST. IV LASIX GIVEN AND ADAMS CATHETER INSERTED. SECOND IV INSERTED INTO LEFT FOREARM. WELL TOLERATED BY PT. MAGNESIUM NOW INFUSING. PT AND DAUGHTER UPDATED ON PLAN OF CARE. ALL QUESTIONS ANSWERED. PT NOW EATING DINNER. CALL LIGHT WITHIN REACH. WILL CONTINUE TO MONITOR.
--- NOTE | 2022-08-26 18:45 | NUR ---
ONE TIME PRN DOSE OF LOPRESSOR GIVEN (SEE EMAR) PER DR MARX AT THIS TIME. PT HEART RATE TRANSIENTLY DOWN INTO THE 120S, BACK UP INTOT HE 130S AT REST.
--- NOTE | 2022-08-26 20:25 | NUR ---
PATIENT RESTING IN BED. EDUCATED ON MEDICATIONS AND PLAN OF CARE FOR THE NIGHT. PATIENT REPOSITIONED IN BED. LIGHTS DIMMED FOR COMFORT. CALL LIGHT AND BELONGINGS IN REACH. CAN MAKE NEEDS KNOWN. ADAMS DRAINING LIGHT YELLOW URINE TO BEDSIDE BAG. HEART RATE REMAINS 120-150'S.
--- NOTE | 2022-08-27 00:25 | NUR ---
PATIENTS VITALS RECORDED. PATIENTS SCHEDULED MEDS GIVEN PER ORDER. PATIENT DENIES ANY NEEDS. CALL LIGHT IN REACH.
--- NOTE | 2022-08-27 01:08 | NUR ---
PATIENT IS RESTING IN BED WITH EYES CLOSED, RR 17. CALL LIGHT IN REACH.
--- NOTE | 2022-08-27 02:56 | NUR ---
PATIENT IS RESTING IN BED. PATIENTS ADAMS EMPTIED. PATIENT DENIES ANY NEEDS AT THIS TIME. CALL LIGHT IN REACH.
--- NOTE | 2022-08-27 05:15 | NUR ---
PATIENTS ADAMS EMPTIED AND ADAMS CARE COMPLETED. PATIENT ASSISTED TO REPOSITION IN BED. PATIENT PROVIDED WITH FRESH WATER. AM MEDS PER ORDER. ASSESMENT COMPLETED. LAB PRESENT IN ROOM. CALL LIGHT IN REACH.
--- NOTE | 2022-08-27 07:30 | NUR ---
REPORT FROM ROXANA RN'S, PT RESTING IN BED WITH HR IN 140-160'S ON MONITOR - AWARE OF LOW BP AND INCREASED HR AFIB. IV IS SL, ADAMS TO GRAVITY WITH CLEAR YELLOW URINE, PT WITH CALL LIGHT IN HAND - READY FOR MEAL. DENIES NEEDS/PAIN, ASSESSMENT COMPLETE.
--- NOTE | 2022-08-27 08:43 | NUR ---
PATIENT SITTING UP IN BED, VITALS AND I&OS CHARTED. RN AT BEDSIDE.
--- NOTE | 2022-08-27 08:50 | NUR ---
SON IN ROOM AT BEDSIDE, DR AWARE OF HR, NEW ORDER FOR 5 MG LOPRESSOR IV GIVEN NOW. RN ASSIST PT WITH ORAL CARE OF DENTURES, AND PT AM CARE. PT DT. MELLO ON PHONE WITH RHONDA CARTER GETTING REPORT. ON FLOOR.
--- NOTE | 2022-08-27 10:05 | NUR ---
pt dtg naveen here - updated on pt status, dr medina here.
--- NOTE | 2022-08-27 11:19 | NUR ---
PT VERY ANXIOUS DURING ALL CARE - DENIES THAT RN CAN EXPLAIN OR HELP WITH HER WORRY. TRIED TO REASSURE PT. HR DUIRNG BED BATH UP TO 170'S AND MONITOR READ VTACH, PT ASYMPTOMATIC - PT ALLOWED VERY LIMITED CARE - NO FACE OR HAIR WASH AND SKIN ALL WNL - CHUX CHANGED AND NEW GOWN WERE ALLOWED TO BE PLACED. PT HR 139 AT REST AND PT WITH CALL LIGHT IN REACH AND ALL ITEMS IN REACH.
--- NOTE | 2022-08-27 11:23 | NUR ---
BEDBATH AND ADAMS CARE PROVIDED. PATIENTS HR IN THE 15OS WHILE TURNED TO LEFT SIDE DURING RAINA CARE. CARE COMPLETED AND PATIENT RETUNED TO SUPINE POSITION. RN AWARE AND HELPING WITH CARE. CALL LIGHT AND PERSONAL ITEMS IN EASY REACH
--- NOTE | 2022-08-27 11:36 | NUR ---
DR MARX AND DTG IN WITH PT FOR EXAM. HR UP TO 170 SITTING UP, PT ASKS QUESIONS AND ALERT.
--- NOTE | 2022-08-27 11:49 | NUR ---
125 MG DIG GIVEN X1 NOW NEW ORDER. PT ASYMPTOMATIC, EATING LUNCH.
--- NOTE | 2022-08-27 12:24 | NUR ---
PATIENT FINISHED WITH LUNCH, AWAKE IN BED. DAUGHTER AT BEDSIDE. VITALS CHARTED. CALL LIGHT AND PERSONAL ITEMS IN EASY REACH.
--- NOTE | 2022-08-27 14:25 | NUR ---
SITTING IN BED WATCHING TV.PATIENT PLANS TO GO HOME. DOES NOT NEED DME AT THIS TIME. HAS A DAUGHTER THAT CAN HELP AT HOME IF NEEDED.
--- NOTE | 2022-08-27 14:35 | NUR ---
PT OFFERED BED JARAMILLO - NO RESULTS, REPOSITIONED IN BED AND TURNED TO LEFT SIDE WITH PILLOW. ASSESSMENT COMPLETE.
--- NOTE | 2022-08-27 15:18 | NUR ---
repositioned pt oxygen probe, hr 95, 95% oxygen room air, 21 resp rate. denies needs.
[2022-08-27] MEDS ORDERED: OVEGA-3 SOFTGE1 EAC1 PO (16:42)
[2022-08-27] MEDS ORDERED: FISH OIL 1,0001 EAC9 PO (16:42)
--- NOTE | 2022-08-27 16:44 | NUR ---
MED REC COMPLETE
--- NOTE | 2022-08-27 17:50 | EKG ---
[facility] [address] [place] [address] Signed Atrial fibrillation with rapid ventricular response Left bundle branch block Abnormal ECG When compared with ECG of 08-JAN-2022 00:59, Atrial fibrillation has replaced Sinus rhythm Vent. rate has increased BY 65 BPM Confirmed by JESSEE MARX MD ([id number]) on 08/27/2022 5:50:41 PM Electronically Signed By: JESSEE MARX MD 08/27/22 1750 PATIENT NAME: QUINTON GILLIS OMARI Electrocardiogram DATE OF : 35 PHYSICIAN: JESSEE MARX MD REPORT #: [id number] REPORT IS CONFIDENTIAL AND NOT TO BE RELEASED WITHOUT AUTHORIZATION
--- NOTE | 2022-08-27 17:59 | NUR ---
dr here - aware of irregular hr at noon time - and vitls now hr 96, 97% o2, 122/59 (77) see new orders.
--- NOTE | 2022-08-27 18:47 | NUR ---
pt to bedpan, sm ricardo stool noted - pt skin wnl - alert - denies pain or needs, call light in reach - skin wnl -
--- NOTE | 2022-08-27 20:04 | NUR ---
PATIENT IN BED. REPORTED NEEDING TO HAVE A BM. PATINET PLACED ON BED JARAMILLO AND HAD A SMALL FORMED BM. REPOSITIONED IN BED FOR COMFORT. CALL LIGHT IN REACH. EDUCATED ON MEDICATIONS AND PLAN OF CARE.
--- NOTE | 2022-08-27 22:06 | NUR ---
PATIENT IN BED. REPOSITIONED FOR COMFORT. TOOK PO PILLS WITH WATER. ADAMS DRAINGING PALE YELLOW URINE TO BEDSIDE BAG. CALL LIGHT IN REACH AND CAN MAKE NEEDS KNOWN.
--- NOTE | 2022-08-28 00:54 | NUR ---
PATIENT RESTING IN BED. TOOK PO MEDS. ADAMS DRAINING TO BEDSIDE BAG. CALL LIGHT IN REACH AND CAN MAKE NEEDS KNOWN.
--- NOTE | 2022-08-28 03:48 | NUR ---
PATIENT RESTING IN BED WITH EYES CLOSED. RESPIRATIONS EVEN AND UNLABORED. CALL LIGHT IN REACH.
--- NOTE | 2022-08-28 05:12 | NUR ---
LAB AT BEDSIDE FOR AM DRAW. ADAMS DRAINING YELLOW URINE TO BEDSIDE BAG. CALL LIGHT INREACH. PATIENTS VS STABLE. DENIES NEEDS AT THIS TIME.
--- NOTE | 2022-08-28 06:40 | NUR ---
PATIENT CALLED TO USE THE BED JARAMILLO. EXTRA SMALL BM. HR IN THE 110'S WITH EXERTION.
--- NOTE | 2022-08-28 07:30 | NUR ---
REPORT RECEIVED, CARE OF PT ASSUMED AT THIS TIME.
--- NOTE | 2022-08-28 08:30 | NUR ---
ASSESSMENT COMPLETED. PT ALERT AND ORIENTED. ANSWERING ALL QUESTIONS APPROPRIATELY. HEART RATE IN THE 115-130S WHILE IN BED, UP INTO THE 140S WITH EATING BREAKFAST. EDEMA IN LOWER EXTREMITIES MINIMAL. SON AT BEDSIDE. PT UNDERSTAND PLAN OF CARE FOR DAY. CALL LIGHT WITHIN REACH. WILL CONTINUE TO MONITOR.
--- NOTE | 2022-08-28 09:09 | NUR ---
PT UP TO BSC TO HAVE BOWEL MOVEMENT. HR NOT HIGHER THAT 130 WITH ACTIVITY. PT STEADY ON FEET, ONE PERSON STAND BY ASSIST REQUIRED. WORK OF BREATHING SLIGHTLY ELEVATED WITH ACTIVITY. PT DENIES FEELING SHORT OF BREATH. PT HAD LARGE BOWEL MOVEMENT. NOW BACK IN BED. ADAMS CARE AND AM CARE COMPLETED. CALL LIGHT WITHIN REACH. WILL CONTINUE TO MONITOR.
--- NOTE | 2022-08-28 09:21 | NUR ---
URGENT CARE IN ROOM AT THIS TIME FOR ECHOCARDIOGRAM
--- NOTE | 2022-08-28 10:30 | NUR ---
PT RESTING IN BED. DENIES ANY NEEDS AT THIS TIME.
--- NOTE | 2022-08-28 11:09 | NUR ---
PATIENT IS SITTING UP IN BED VISITING WITH HER DAUGHTER.PATIENT PLANS TO GO HOME TO HER OWN HOUSE AND FAMILY WILL HELP IF NEEDED.
--- NOTE | 2022-08-28 11:15 | NUR ---
IN ROOM FOR MEDICATION ADMINISTRATION. DAUGHTER DISCUSSED PLAN OF CARE AND MEDICATION REGIMEN. IV MAGNESIUM NOW INFUSING.PLAN ESTABLISHED TO GET PT UP INTO CHAIR FOR LUNCH. CALL LIGHT WITHIN REACH. WILL CONTINUE TO MONITOR.
--- NOTE | 2022-08-28 12:00 | NUR ---
PT UP IN CHAIR FOR LUNCH. IV MAGNESIUM CONTINUES TO INFUSE. DAUGHTER AT BEDSIDE. HEART RATE IN THE 130S-150S WITH ACTIVITY. WILL CONTINUE TO MONITOR.
--- NOTE | 2022-08-28 13:22 | NUR ---
SECOND BAG OF MAGNESIUM INFUSING. PT NOW BACK IN BED. HEART RATE 100-110 AT REST. GOOD URINE OUTPUT RESULTS AFTER LASIX ADMINISTRATION. PERSONAL BELONGINS AND AND CALL LIGHT WITHIN REACH. WILL CONTINUE TO MONITOR.
--- NOTE | 2022-08-28 14:25 | NUR ---
PO MEDS ADMINISTERED. PT RESTING IN BED WATCHING TELEVISION. CALL LIGHT WITHIN REACH. WILL CONTINUE TO MONITOR.
--- NOTE | 2022-08-28 15:45 | NUR ---
PT REMAINS RESTING IN BED. ASSISTED WITH REPOSITIONING IN BED.
--- NOTE | 2022-08-28 17:15 | NUR ---
PT EATING DINNER. HEART RATE IN THE 130-140 WITH ACTIVITY.
--- NOTE | 2022-08-28 18:30 | NUR ---
PT REPOSITIONED IN BED. ADAMS CATHETER EMPTIED. PT HEART RATE 100-110 AT REST. RESPIRATIONS IN THE 20S. CALL LIGHT WITHIN REACH. WILL CONTINUE TO MONITOR.
--- NOTE | 2022-08-28 19:30 | NUR ---
shift report received. patient resting in bed. request her pm meds and assistance to get ready for sleep. assisted patient to turn to her right side slightly to reduce pressure. discussed plan of care with patient.
--- NOTE | 2022-08-28 20:30 | NUR ---
PATIENT PROVIDED SCHEDULED MEDS AND PRN TYLENOL FOR GENERAL ACHES/PAINS. PATIENT IS AAOX4. LUNG SOUNDS ARE CLEAR IN UPPERS/ DIM IN THE BASES. TOLERATING ROOM AIR. VS STABLE. HR 95-110, A.FIB. PATIENT DENIES FEELING SOB. ADAMS HAS CLEAR YELLOW URINE NOTED. IV SITES FLUSHED X2, WNL. PATIENT DENIED OTHER NEEDS. CALL LIGHT IN REACH. LIGHTS DIMMED.
--- NOTE | 2022-08-28 23:30 | NUR ---
PATIENT RESTING WITH EYES CLOSED. APPEARS COMFORTABLE. VS STABLE. CALL LIGHT IN REACH.
--- NOTE | 2022-08-29 01:45 | NUR ---
PATIENT UP TO THE BSC TO HAVE A BM. PATIENT TOLERATED WELL WITH 1PA. PATIENT HAD LARGE ARIAS FORMED BM. ASSISTED PATIENT TO CHANGE HER GOWN AND THE DRAW SHEET DUE TO DIAPHORESIS. ORAL TEMP WNL. SCHEDULED PO MEDS PROVIDED. PATIENT'S HR UP TO 120'S WITH ACTIVITY; A.FIB. RESTING IS 90-110. VS STABLE.
--- NOTE | 2022-08-29 06:00 | NUR ---
PATIENT RESTING WITH EYES CLOSED. WOKE EASILY WHEN RN IN ROOM. ADAMS EMPTIED. PATIENT REPORTS FEELING WEAK BUT BETTER OVERALL; NO SOB. ASSISTED TO REPOSITION IN BED. VS STABLE. PATIENT DENIED FURTHER NEEDS. CALL LIGHT IN REACH.
--- NOTE | 2022-08-29 07:30 | NUR ---
PATIENT SHIFT REPORT RECIEVED FROM WIDE PIECE GOODS INSPECTOR RN. PATIENT RESTING IN BED. PATIENT CALLS APPROPRIATELY. PATIENTS HR IS TRENDING 100'S-110 AT REST AT THIS TIME.
--- NOTE | 2022-08-29 09:30 | NUR ---
PATIENT MEDICATIONS GIVEN. PATIENT UP TO THE CAMMODE WITH 1 PERSON STAND-BY. PATIENT STEADY, BUT FEELS WEAK. PATIENT BREATH SOUNDS CLEAR IN UPPER LOBES AND FINE CRACKLES NOTED IN RIGHT LOWER LOBE. PATIENT DENIES SOB. PATIET ON RA. RR- 16. PATIENT BOWEL TONES ACTIVE. PATIENT HAD LG BM. ADAMS CATHETER IN PLACE. PATIENT REQUESTED TO GO BACK TO BED WHEN OFFERED TO GET THE THE CHAIR. PATIENT ASSISTED BACK TO BED. PATIENT HAS CALL LIGHT AND HER ITEMS NEEDED ON HER BEDSIDE TABLE. PATIENT IS VERY PARTICULAR IN HER CARE AND WHERE ITEMS ARE IN THE ROOM.
--- NOTE | 2022-08-29 10:15 | NUR ---
MD MARX IN TO SEE PATIENT. PATIENTS HR HAS BEEN INCREASED SINCE PATIENT WOKE AND WAS EATING BREAKFAST IN BED THIS MORNING. PATIENTS HR WITH ACTIVITY THEN INCREASED TO 130-160. PLAN OF CARE REVIEWED WITH MD. PATIENT WILL GET A DOSE OF LASIX AND START ON A DILTIAZEM GTT. MD WILL CALL AND UPDATE HER DAUGHTER. PATIENTS SON IS CURRENTLY AT THE BEDSIDE. WILL CONTINUE TO CLOSELY MONITOR.
--- NOTE | 2022-08-29 11:31 | NUR ---
PATIENTS DAUGHTER AT THE BEDSIDE AND UPDATED ON PLAN OF CARE. PATIENT STARTED ON CARDIZEM GTT AT 3MLS/HR. WILL MONITOR PATIENTS HR AND BLOOD PRESSURE FOR EFFECTIVENESS AND TITRATE NEEDED. WILL CONTINUE TO CLOSELY MONITOR.
--- NOTE | 2022-08-29 12:57 | NUR ---
MARX OVER TO CHECK ON PATIENTS STATUS. THIS RN WILL CONTINUE TO TITRATE PATIENTS CARDIZEM GTT PER ORDERS. WILL AIM FOR HR CONTROLL <90 AT REST AND THEN SEE HOW PATIENT DOES WITH ACTIVITY AND GETTING UP AND MOVING TO THE CHAIR. PATIENTS DAUGHTER UPDATED. PATIENT IS CURRENTLY RESTING ON HER SIDE. WILL CONTINUE TO CLOSELY MONITOR.
--- NOTE | 2022-08-29 13:39 | NUR ---
ROUNDED ON PATIENT. RESTING IN BED FAMILY NOT CURRENTLY WITH PATIENT. SN ASSESSED LUNGS AND DOCUMENTED I&O'S. PATIENT STATES NO FURTHER NEEDS AT THIS TIME. CALL CASAS WITHIN REACH.
--- NOTE | 2022-08-29 15:15 | NUR ---
PATIENT REMAINS ON DILTIAZEM GTT OF 8MLS/HR. PATIENTS HR IS 80-90'S WITH GOOD BLOOD PRESSURE AND MAP CONTROLL. PATIENT IS RESTING IN BED AT THIS TIME. PATIENTS DAUGHTER LEFT. MEDICATIONS GIVEN. PATIENT REQUESTED AN ICEE SNACK. WILL CALL THE KITCHEN FOR SNACK. WILL CONTINUE TO CLOSELY MONITOR.
--- NOTE | 2022-08-29 17:26 | NUR ---
PATIENT DINNER ARRIVED. THIS RN IN TO HELP PATIENT SET UP TO EAT MEAL. PATIENT REFUSED TO GET OUT OF BED TO EAT, BUT WILL GET UP AND SIT IN THE CHAIR AFTER SHE IS DONE WITH HER FOOD. PATIENT DOES NOT WANT HER FOOD TO GET COLD WHILE GETTING UP TO MOVE. PATIENTS HR REMAINS STEADY IN THE 80'S-90'S WITH SITTING UP TO EAT. MUCH BETTER HR CONTROL THAN COMPARED TO EARLIER IN THE SHIFT. WHEN PATIENT SAT UP IN BED FOR OTHER MEALS PTS HR WOULD GO TO 130'S-150'S. WILL CONTINUE TO CLOSELY MONITOR.
--- NOTE | 2022-08-29 18:30 | NUR ---
PATIENT FINISHED HER DINNER AND WANTED UP TO THE CAMMODE. PATIENT UP WITH STAND-BY ASSIST. PATIENTS HR WITH ACTIVITY REMAINED 80'S-100'S WITH ACTIVITY. PATIENT REFUSED TO SIT UP IN THE CHAIR. PATIENT BACK TO BED AND TURNED TO HER SIDE WITH PILLOW SUPPORT. PATIENT TOELRATED WELL. PATIENTS DAUGHTER CALLED WHILE PATIENT WAS EATING DINNER AND REQUESTED TO HAVE PATIENT CALL HER BACK WHEN SHE WAS DONE WITH HER NIGHTLY ROUTINE. WILL CONTINUE TO CLOSELY MONITOR.
--- NOTE | 2022-08-29 19:39 | NUR ---
PT ASSESSMENT COMPLETED. PT A/O, RESPIRATIONS EVEN AND REGULAR. HR UPPER 70'S-90'S. DILTIAZEM RUNNING AT 8MG/HR. ADAMS CATHETER IN PLACE. PT REFUSES CATH REMOVAL ATT. ENCOURAGED REMOVAL AND EDUCATED ON RISKS FOR LEAVING IT IN. PT AGREEABLE TO REMOVAL FIRST THING IN THE MORNING SHE WOULD LIKE TO SLEEP TONIGHT. CALL LIGHT WITHIN REACH.
--- NOTE | 2022-08-29 20:05 | NUR ---
TO PT ROOM FOR MEDICATION ADMINISTRATION. PT DENIES NEEDS/COMPLAINTS ATT. CALL LIGHT WITHIN REACH.
--- NOTE | 2022-08-29 21:26 | NUR ---
TO PT ROOM FOR IV MEDICATION. NO CHANGE TO DILTIAZEM RATE ATT. PT IS A/O, RESPIRATIONS EVEN AND REGULAR. CALL LIGHT WITHIN REACH.
--- NOTE | 2022-08-29 23:06 | NUR ---
ROUNDED ON PT. PT APPEARS TO BE RESTING COMFORTABLY. HR UPPER 70'S TO MID 80'S. DILTIAZEM RUNNING AT 8MG/HR. CALL LIGHT WITHIN REACH.
--- NOTE | 2022-08-29 23:58 | NUR ---
PT ASSESSMENT COMPLETED. PT DENIES PAIN ATT. CONTINUES TO HAVE RATE CONTROL ON DILTIAZEM 8MG/HR. CALL LIGHT WITHIN REACH.
--- NOTE | 2022-08-30 02:10 | NUR ---
TO PT ROOM FOR MEDICAITON ADMINISTRATION. PT IS A/O, RESPIRATIONS EVEN AND REGULAR. HR 76-84. NO CHANGE TO DILTIAZEM RATE. CALL LIGHT WITHIN REACH.
--- NOTE | 2022-08-30 06:13 | NUR ---
TO PT ROOM. ADAMS CATHETER REMOVED. PT OOB TO BEDSIDE COMMODE. CALL LIGHT WITHIN REACH.
--- NOTE | 2022-08-30 06:38 | NUR ---
ASSISTED PT FROM [facility] [place]. PT HAS SMALL BOWEL MOVEMENT WITH 40ML URINE. PT C/O PAIN TO IV SITE. IV DC'D. PT HR CONTROLLED WITH DILTIAZEM CONTINUING TO RUN AT 8MG/HR. PT DENIES ANY OTHER NEEDS OR COMPLAITNS ATT. CALL LIGHT WITHIN REACH.
--- NOTE | 2022-08-30 07:30 | NUR ---
THIS SN PROVIDED PATIENT WITH BREAKFAST. PATIENT STATES SHE DIDN'T SLEEP WELL LAST NIGHT BECAUSE SHE COULDN'T GET COMFORTABLE. THIS SN INCOURAGED PATIENT TO GET UP AFTER BREAKFAST AND MOVE TO THE CHAIR. PATIENT IS CURRENTLY EATING IN BED AND STATES SHE WILL CALL WHEN SHE IS FINISHED SO SHE CAN MOVE TO THE CHAIR. PATIENT STATES NO PAIN CURRENTLY AND NO FURTHER NEEDS. CALL LIGHT IN REACH WILL CONTINUE TO MONITOR.
--- NOTE | 2022-08-30 07:30 | NUR ---
PATIENT SHIFT REPORT RECIEVED FROM ACID RECOVERY OPERATOR RN. PATIENT RESTING IN BED. PATIENT REMAINS ON CARDIZEM GTT AT 8MLS/HR. PATIENTS HR 70'S-90'S AT REST. WILL CONTINUE TO CLOSELY MONITOR.
--- NOTE | 2022-08-30 08:44 | NUR ---
PATIENT WALKED DOWN THE CRUM AND BACK TO HER ROOM WITH A SLOW AND STEADY GAIT. PATIENT CLAIMS SHE DOES NOT FEEL SHORT OF BREATH AND HEART RATE STAYED STABLE IN THE HIGH 70S LOW 80S. CURRENTLY PATIENT IS SITTING UP IN THE CHAIR. GOAL IS TO HAVE PATIENT IN THE CHAIR UNTIL 0930. DAUGHTER SHOULD BE ARRIVING FOR A VISIT THIS MORNING. PATIENT HAS NO FURTHER NEEDS AT THIS TIME. CALL CASAS IN REACH WILL CONTINUE TO MONITOR.
--- NOTE | 2022-08-30 08:55 | NUR ---
PATIENT WALKED DOWN THE CRUM AND BACK TO HER ROOM WITH A SLOW AND STEADY GAIT. HEART RATE STAYED BELOW 105 DURING ACTIVITY AND PATIENT CLAIMS NO SHORTNESS OF BREATH. PATIENT CURRENTLY SITTING IN CHAIR. GOAL IS TO STAY IN THE CHAIR UNTIL 0930 FOR A TOTAL OF ONE HOUR. BED LINENS HAVE BEEN CHANGED. PATIENT HAS NO FURTHER NEEDS AT THIS TIME. WILL CONTINUE TO MONITOR.
--- NOTE | 2022-08-30 09:00 | NUR ---
PATIENT UP AND WALKED INTO HALLWAY WITH THIS RN AND STUDENT RN. PATIENT TOELRATED WELL. PATIENTS HR REMIANED AROUND 90'S. PATIENT DENIES SOB. PATIENT WALKED BACK TO ROOM AND SITTING IN CHAIR AT THIS TIME. STUDENT RN AT THE BEDSIDE TO PROVIDE ADLS. WILL CONTINUE TO CLOSELY MONITOR.
--- NOTE | 2022-08-30 11:30 | NUR ---
THIS RN GAVE ORAL CARDIZEM. PER MD MARX WILL WAIT 30 MINTUES AFTER GIVING ORAL CADIZEM TO DECREASE DILTIAZEM GTT BY 2MLS/HR EVERY 20 MINUTES. MD MARX UPDATED THAT LAB IS UNABLE TO DO HEPATIC FUNCTION TEST. WILL CANCEL THE ORDER. PATIENT IS RESTING IN THE CHAIR AT THIS TIME. WILL CONTINUE TO CLOSELY MONITOR.
--- NOTE | 2022-08-30 11:50 | NUR ---
PATIENT UP TO USE THE BATHROOM. FAMILY LEFT AT THIS TIME. PATIENT TOELRATED WELL AND BACK IN THE CHAIR. CALL LIGHT IN REACH. LUNCH ARRIVED AND SET UP FOR PATIENT. PATIENT DENIES ANY OTHER NEEDS AT THIS TIME. DILTIAZEM GTT TURNED DOWN TO 6MLS/HR PER MD MARX. WILL CONTINUE TO TITRATE MEDICATION OFF.
--- NOTE | 2022-08-30 12:15 | NUR ---
DILTIAZEM GTT TURNED DOWN TO 4MLS/HR. WILL CONTINUE TO TITRATE DOWN BY 2MLS/HR EVERY 20 MINUTES. PATIENT EATING HER LUNCH. PATIENT REQUESTED ICE CREAM. WILL GET PATIENT HER SNACK. NO OTHER NEEDS AT THIS TIME.
--- NOTE | 2022-08-30 12:40 | NUR ---
DILTIAZEM GTT TURNED DOWN TO 2MLS/HR. PATIENT TOLERATING TRANSITION WELL. PATIENTS HEART RATE REMAINS UNCHANGED FROM EARLIER IN THE SHIFT. PATIENT SITTING IN THE CHAIR. NO OTHER REQUESTS AT THIS TIME. PATIENT HAS A WARM BLANKET ON HER LAP.
--- NOTE | 2022-08-30 13:00 | NUR ---
CARDIZEM GTT IS OFF AT THIS TIME. PATIENTS ICE CREAM HAS NOT ARRIVED. WILL CALL AGAIN. WILL CONTINUE TO CLOSELY MONITOR.
--- NOTE | 2022-08-30 14:10 | NUR ---
Sitting in chair eyes closed.No change in plan of care,will reassess ongoing.
--- NOTE | 2022-08-30 15:10 | NUR ---
PATIENT UP AND WORKING WITH PHYSICAL THERAPY.
--- NOTE | 2022-08-30 15:42 | NUR ---
PATIENT SITTING BACK IN THE CHAIR AT THIS TIME. PATIENT DENIES ANY NEEDS. WILL CONTINUE TO CLOSELY MONITOR.
--- NOTE | 2022-08-30 16:05 | NUR ---
THIS RN IN TO ASSIST PATIENT UP TO THE BATHROOM. PATIENT TOLERATED WELL. PATIENTS HR REMAINED LESS THAN 100 WITH ACTIVITY. WILL CONTINUE TO CLOSELY MONITOR.
--- NOTE | 2022-08-30 18:20 | NUR ---
PATIENT DONE WITH HER DINNER. ASSISTED PATIENT TO CALL HER DAUGHTER. PROVIDED PATIENT WITH A FRESH WARM BLANKET. PATIENT RESTING UP IN THE CHAIR AT THIS TIME. ENCOURAGED PATIENT TO SHIFT HER BUTTOCKS ON OCCASION TO PREVENT SKIN BREAK DOWN. WILL CONTINUE TO CLOSELY MONITOR.
--- NOTE | 2022-08-30 18:59 | NUR ---
PATIENT ASSISTED UP TO THE BATHROOM. PATIENT ATTENDS CHANGED. PATIENT NOW RESTING IN BED. WARM BLANKET PROVIDED FOR COMFORT. ALL BELONGINGS WITHIN REACH. CALL LIGHT NEXT TO PATIENT. PATIENT WATCHING TV AND WAITING TO GO TO BED UNITL HER PM MEDICATIONS AND RISK MANAGEMENT INTERNSHIP RN COMES IN.
--- NOTE | 2022-08-30 19:47 | NUR ---
PT ASSESSMENT COMPLETED. PT IS A/O, RESPIRATIONS EVEN AND REGULAR. CALL LIGHT WITHIN REACH.
--- NOTE | 2022-08-30 21:13 | NUR ---
TO PT ROOM FOR MEDICATION ADMINISTRATION. ASSISTED PT UP TO RESTROOM. AMBULATED WELL WITH WALKER. CALL LIGHT WITHIN REACH.
--- NOTE | 2022-08-30 22:29 | NUR ---
TO PT ROOM FOR MEDICATION ADMINISTRATION. PT IS A/O, RESPIRATIONS EVEN AND REGULAR. DENIES NEEDS/COMPLAINTS ATT. CALL LIGHT WITHIN REACH.
--- NOTE | 2022-08-31 00:24 | NUR ---
PT ASSESSMENT COMPLETED. PT IS A/O, RESPIRAIONS EVEN AND REGULAR. DENIES NEEDS OR COMPLAINTS ATT. CALL LIGHT WITHIN REACH.
--- NOTE | 2022-08-31 03:13 | NUR ---
assisted pt to restroom. voided 400ml. Pt ambulated well with walker. call light within reach.
--- NOTE | 2022-08-31 05:45 | NUR ---
MD NOTIFIED OF PT LOWER BP'S THIS MORNING AND HR. VERBAL ORDER OK TO GIVE [id number] CARDIZEM.
--- NOTE | 2022-08-31 05:52 | NUR ---
TO PT ROOM FOR MEDICATION ADMINISTATION. PT IS A/O, RESPIRATIONS EVEN AND REGULAR. HR 55-68. DENIES NEEDS ATT. CALL LIGHT WITHIN REACH.
--- NOTE | 2022-08-31 07:30 | NUR ---
REPORT RECEIVED FROM JEAN CARTER. PT IS SITTING IN BED, EYES CLOSED, RESP EVEN AND UNLABORED. HR 60'S.
--- NOTE | 2022-08-31 08:36 | NUR ---
PT HAS JUST FINISHED EATING BREAKFAST, ASSISTED UP TO BATHROOM TO VOID, STEADY ON FEET, HR 70-80'S WHILE. DENIES LIGHTHEADEDNESS/DIZZINESS/SOB, STABLE ON FEET SBA ONLY. AFTER VOIDING SHE BRUSHED HER TEETH AND THEN ASSISTED BACK TO BED. CALL LIGHT IN HAND, ALERT AND ORIENTED.
--- NOTE | 2022-08-31 09:35 | NUR ---
DR MARX IN TO SEE PT, PLAN TO TRANSFER TO MED SURG FLOOR TODAY.
[2022-08-31] MEDS ORDERED: DIGITEK125 MCG PO (09:52)
[2022-08-31] MEDS ORDERED: METOPROLOL SUC200 MG PO (09:52)
[2022-08-31] MEDS ORDERED: DILTIAZEM 24HR240 M1 PO (09:52)
[2022-08-31] MEDS ORDERED: MAG6464 MG PO (09:53)
[2022-08-31] MEDS ORDERED: K-TAB10 MEQ PO (09:53)
[2022-08-31] MEDS ORDERED: ASPIRIN EC325 MG PO (09:53)
[2022-08-31] MEDS ORDERED: TORSEMIDE10 MG PO (09:54)
--- NOTE | 2022-08-31 10:19 | NUR ---
PT TRANSFERED TO RM 109 VIA RECLINER, ASSISTED ONE PERSON TO RESTROOM AND BACK TO RECLINER. ORIENTED TO ROOM AND CALL LIGHT. DENIES FURTHER NEEDS AT THIS TIME.
--- NOTE | 2022-08-31 11:31 | NUR ---
PT UP TO BATHROOM, DAUGHTER IN ROOM, CONCERN FOR SACRAL REDNESS. ASSESSED, BLANCHABLE REDNESS TO SACRUN AND THORACIC SPINE, ALLEVYN DRESSING APPLIED. PT AND DAUGHTER EDUCATED ON REPOSITIONING AT LEAST EVERY 2 HRS AND IF DISCOMFORT IT FELT. PT AGREEABLE TO WALK IN CRUM LATER THIS AFTERNOON.
--- NOTE | 2022-08-31 14:00 | NUR ---
PT SITTING IN CHAIR. PT DENIES PAIN. PT ON ROOM AIR, LUNG SOUNDS CLEAR. HR IRREGULAR. PT WITHOUT EDEMA. IV SALINE LCOKED. PT ASSISTED TO BATHROOM AND THEN BACK TO CHAIR. PT DENIES OTHER NEEDS AT THIS TIME.
--- NOTE | 2022-08-31 17:43 | NUR ---
PT RECEIVED FROM CCU. PT ON ROOM AIR, LUNG SOUNDS CLEAR. PT SBA TO AMBULATE, WORKING WITH P.T. HR CONTROLLED ON ORAL METOPROLOL, DIGOXIN, AND CARDIZEM. PT WITH REDNESS TO SACRUM AND THORACIC SPINE, ALLEVYN IN PLACE.
--- NOTE | 2022-08-31 20:30 | NUR ---
REPORT RECEIVED FROM NIGHT RN AND PT. CARE RESUMED. PT. IS ALERT AND ORIENTED TO ALL. SHE DENIES PAIN. VITALS STABLE. MEDS ADMINISTERED AND ASSESSMENT COMPLETED. DISCUSSED POC. LEFT RESTING WITH CALL LIGHT IN REACH.
--- NOTE | 2022-08-31 23:24 | NUR ---
ROUNDING ON PT. SHE IS RESTING IN BED WITH EYES CLOSED. RESPIRATIONS ARE EVEN AND UNLABORED.
--- NOTE | 2022-09-01 01:23 | NUR ---
RECEIVED REPORT FROM JERI CARTER. PATIENT IS RESTING IN BED WITH EYES CLSOED, RR 17. CALL LIGHT IN REACH.
--- NOTE | 2022-09-01 03:02 | NUR ---
PATIENT ASSISTED TO THE BR A SBA. PATIENT ABLE TO VOID. PATIENT IS BACK IN BED RESTING. PATIENTS TEMP RE EVALUATED AND WNL. PATIENT DENIES ANY NEEDS. CALL LIGHT IN REACH.
--- NOTE | 2022-09-01 06:17 | NUR ---
PATIENT UP TO BR WITH OUTSIDE PLANT ENGINEER. PATIENT IS BACK IN BED RESTING. PATIENT DENIES ANY NEEDS. VITALS TAKEN AND RECORDED. BY OUTSIDE PLANT ENGINEER. NO NEEDS NOTED. CALL LIGHT IN REACH.
--- NOTE | 2022-09-01 07:00 | NUR ---
HANDOFF REPORT RECEIVED FROM ENGINEER SECOND ASSISTANT RN.
--- NOTE | 2022-09-01 08:15 | NUR ---
PT SITTING IN CHAIR. PT DENIES PAIN. PT ON ROOM AIR, LUNG SOUNDS CLEAR. HR IRREGULAR. BOWEL TONES ACTIVE. IV SALINE LOCKED. CMS INTACT, WITHOUT EDEMA. DISCUSSED PLAN OF CARE FOR THE DAY, PT APPREHENSIVE ABOUT DISCHRAGE. PT DENIES OTHER NEEDS AT THIS TIME.
--- NOTE | 2022-09-01 11:00 | NUR ---
DISCHARGE INSTRUCTIONS COMPLETED WITH PT AND DAUGHTER.
== END 2022-09-01 11:15 | disposition home or self-care (01) | DRG 308 ==
LOC: ED 12:56 → CCU 16:28 → MS 16:28 → CCU 16:36 → MS 08-31 10:15
PROVIDERS: ADMIT Internal Medicine; ATTEND Family Medicine
DX: I48.0 Paroxysmal atrial fibrillation (principal); I50.23 Acute on chronic systolic (congestive) heart failure; C18.9 Malignant neoplasm of colon, unspecified; R65.10 Systemic inflammatory response syndrome (SIRS) of non-infectious origin without acute organ dysfunction; C78.7 Secondary malignant neoplasm of liver and intrahepatic bile duct; C79.61 Secondary malignant neoplasm of right ovary; C79.89 Secondary malignant neoplasm of other specified sites; Z20.822 Contact with and (suspected) exposure to COVID-19; Z66 Do not resuscitate; I44.7 Left bundle-branch block, unspecified; K75.9 Inflammatory liver disease, unspecified; H40.9 Unspecified glaucoma; D63.0 Anemia in neoplastic disease; Z98.890 Other specified postprocedural states; Z79.899 Other long term (current) drug therapy
CPT/HCPCS: 36415; 71045; 71260; 74177; 80048; 80053; 80076; 80162; 81003; 83605; 83735; 83880; 84484; 85025; 87040; 87502; 93005; 93010; 93306; 96374; 99285-25; A9270; C9803; J1160; J1650; J1940; J3475; Q9967; U0003